=== PATIENT | male | born 1965 | race Caucasian/White ===

== ENCOUNTER 2021-11-16 10:41 | Emergency (ER) | payer OTHER, SELFPAY ==
[2021-11-16 10:50] VITALS: BP 154/86; PULSE 58; RESP 16; TEMP 36.8; O2SAT 97
[2021-11-16 10:52] VITALS: BP 154/86; PULSE 58; RESP 16; TEMP 36.8; O2SAT 97
--- NOTE | 2021-11-16 11:05 | ED.EAR ---
HPI - Ear Problem General Chief complaint: Dental/Oral Stated complaint: Ear Pain Time Seen by Provider: 11/16/21 11:05 Source: patient and RN notes reviewed Mode of arrival: ambulatory Limitations: no limitations History of Present Illness HPI Narrative: 56-year-old male presents to the [facility] with complaints of right ear pain and right upper dental pain. Had a tooth pulled on October 27. States he was placed on amoxicillin but took it over a course of 2 to 2-1/2 weeks and not as prescribed. Related Data Allergies Allergy/AdvReac Type Severity Reaction Status Date / Time bee venom protein (honey bee) Allergy Unknown Swelling Verified 11/16/21 10:50 venom-honey bee Allergy Unknown Swelling Verified 11/16/21 10:50 Review of Systems Review of Systems: All systems reviewed & are unremarkable except as noted in HPI and below Constitutional: Constitutional: Reports no additional constitutional complaints, Denies chills and Denies fever(s) Eyes: Eyes: Reports no additional eye complaints ENT: Reports system reviewed and no additional complaints, except as documented Comments: Right upper dental and ear pain Cardiovascular: Cardiovascular: Reports no additional cardiovascular complaints Respiratory: Respiratory: Reports no additional respiratory complaints Gastrointestinal: Gastrointestinal: Reports no additional gastrointestinal complaints Musculoskeletal: Musculoskeletal: Reports no additional musculoskeletal complaints Integumentary/Breasts: Skin/Breast: Reports system reviewed and no additional complaints, except as docu Neurologic: Reports system reviewed and no additional complaints, except as documented Psychiatric: Psychiatric: Reports no additional psychiatric complaints Allergic/Immunologic: Allergic/Immunologic: Reports no additional allergic/immunologic complaints PMFSH Family History Family History Father Family history of lung cancer, Onset Age: 57 Mother Family history of malignant neoplasm of breast in first degree relative, Onset Age: 47 Family history of lung cancer, Onset Age: 47 Sibling Family history of blood dyscrasia Family history of atrial fibrillation Other Family history of malignant neoplasm of breast No family history of hypertension Social History Social History Smoking status: Former smoker Smoking end date: 11/17/04 Alcohol intake: current Comments At the time of my signature, I reviewed and agree with the nursing past medical, surgical, social, and family history. There is no relevant family history pertinent to the patient complaint. Exam Const: General: healthy appearing, no acute distress and alert Nutritional Appearance: well nourished Orientation/consciousness: patient oriented x3 Limitations: no limitations HENMT: Head: normal to inspection Ears: external ears normal, TM's normal bilaterally and EAC's normal Face and sinus: normal facial exam and sinuses nontender Mouth: Yes Normal oral and palatal mucosa present and Yes moist mucous membranes Teeth image: 1. Tenderness, swelling to the gingival area., Tooth #3 extracted recently Eyes: Pupils: Equal, round and reactive pupils present Neck: Neck: normal visual inspection, no lymphadenopathy and no meningeal signs Chest: Chest palpation & inspection: normal inspection of the chest Resp: Effort & Inspection: normal respiratory effort and no use of accessory muscles Auscultation: clear to auscultation bilaterally, no crackles, no rales, no rhonchi and no wheezes Cardio: Rate: regular rate Rhythm: regular rhythm Back/Spine/Pelvis: Back: no CVA tenderness Skin: General skin exam: normal color Rashes: no rashes Wounds: no wounds Neuro: General: patient oriented x3, moves all extremities, no meningeal signs and no focal motor deficits Speech: normal speech Gait exam (
== END 2021-11-16 11:25 | disposition home or self-care (01) ==
PROVIDERS: Emergency Provider Nurse Practitioner; PCP Family Medicine
DX: K04.7 Periapical abscess without sinus (principal); Z87.891 Personal history of nicotine dependence
CPT/HCPCS: 99213; G0463

== ENCOUNTER → 2022-08-15 16:27 | Outpatient (CLI) | payer OTHER, SELFPAY ==
--- NOTE | ~2022-08-15 | XR_ITS ---
XR lumbar spine 2-3V 08/15/2022 16:46 Indication: Low back pain. Procedure: 3 views lumbar spine Comparison: No prior studies for comparison. Findings: There is mild disc narrowing at L5-S1. Vertebral body heights are maintained. The remainder of the disc spaces are preserved. There is facet hypertrophy at L5-S1. No fracture, subluxation or s pondylolisthesis. There are surgical changes in the left mid abdomen and pelvis. Pedicles intact. Sac ral foramen are symmetric. There is atherosclerosis. Impression: 1: Mild lumbar spondylosis. Reviewed, dictated and finalized at location B. Impression: 1: Mild lumbar spondylosis.
== END ==
PROVIDERS: PCP Physician Assistant; Visit Provider Physician Assistant
DX: M47.896 Other spondylosis, lumbar region (principal)
CPT/HCPCS: 72100

== ENCOUNTER 2022-11-26 10:18 | Outpatient (CLI) | payer OTHER, SELFPAY ==
[2022-11-26 20:22] LABS: Prostate Specific Antigen 0.1 ng/mL (< OR = 4.0)
== END 2022-11-26 10:19 | disposition home or self-care (01) ==
LOC: ANHGOSHLAB 10:20
PROVIDERS: PCP Emergency Medicine; Visit Provider Emergency Medicine
DX: Z85.46 Personal history of malignant neoplasm of prostate (principal); Z12.5 Encounter for screening for malignant neoplasm of prostate
CPT/HCPCS: 36415; 84153

== ENCOUNTER → 2022-11-29 15:15 | Outpatient (CLI) | payer OTHER, SELFPAY ==
--- NOTE | ~2022-11-29 | US_ITS ---
US soft tissue groin LT DATE: 11/29/2022 15:40 INDICATION: Left groin swelling TECHNIQUE: Real-time imaging of the left groin COMPARISON: None FINDINGS: There is peristalsing bowel within the soft tissues of the left inguinal region, consistent with bowel containing left inguinal hernia IMPRESSION: Bowel containing left inguinal hernia Reviewed, dictated and finalized at Location A. Reviewed, dictated and finalized at location A. ATOR SUPERVISOR
== END ==
PROVIDERS: PCP Emergency Medicine; Visit Provider Emergency Medicine
DX: K40.90 Unilateral inguinal hernia, without obstruction or gangrene, not specified as recurrent (principal)
CPT/HCPCS: 76882

== ENCOUNTER 2023-01-06 16:13 | Outpatient (CLI) | payer OTHER, SELFPAY ==
--- NOTE | 2023-01-06 16:25 | ECG_ITS ---
Measurements Intervals [place] Rate: 60 P: 44 NH: 153 QRS: 9 QRSD: 100 T: -14 QT: 437 QTc: 438 Interpretive Statements SINUS RHYTHM NONSPECIFIC T-WAVE ABNORMALITY ABNORMAL ECG NO PREVIOUS ECG AVAILABLE FOR COMPARISON Electronically Signed On 01-07-2023 14:08:41 [employer]ANGER by Tc Lee M.D.
== END 2023-01-06 16:14 | disposition home or self-care (01) ==
LOC: ANHCARD 16:15
PROVIDERS: PCP Emergency Medicine; Visit Provider Surgery
DX: E78.00 Pure hypercholesterolemia, unspecified (principal); Z01.818 Encounter for other preprocedural examination; R94.31 Abnormal electrocardiogram [ECG] [EKG]
CPT/HCPCS: 93005

== ENCOUNTER 2023-01-13 01:56 | Day surgery (SDC) | payer OTHER, SELFPAY ==
[2023-01-01 17:26] VITALS: BMI 31.4
--- NOTE | 2023-01-01 17:58 | PC.NURSE ---
Addendum entered by Jennifer Armstrong RN 01/01/23 18:10: Patient told to specifically get Hibiclens Original Note: Report to the Outpatient Waiting Room, entrance under the [facility] located off [facility], at 0600 on 01-13-23. Planned Procedure Time: 0730. Time changes happen often and if your time is changed the preop area will call you the afternoon before. - You and your visitor will be asked to self-screen and do not enter if you have any COVID symptoms. - Only one visitor is requested with a max of two and NO children visitors are allowed at this time. - The patient visitor may be requested to leave or wait in car when not with patient due to distancing restrictions. - A mask is optional within the hospital at this time. Patients may have clear liquids (water, carbonated beverages, clear teas, apple juice) until 3 hours prior to surgery with a maximum of 20 ounces. 0430 - No food from midnight until time of surgery - Infants may have breast milk until 4 hours before surgery, infant formula 6 hours prior to surgery. - Children will be allowed to drink immediately following surgery. If applicable, please bring a bottle or sippy cup to assist with drinking. Juice, water, soda, and popsicles are readily available. For infants on formula, please bring formula the day of surgery. Pacifiers are allowed. Take the following medications with a SIP of water the morning of surgery: mesalamine (Lialda) DO NOT STOP ANY OF YOUR OTHER PRESCRIPTION MEDICATIONS PRIOR TO SURGERY ?EXCEPT THE FOLLOWING Medications to discontinue per physician: vitamins and supplements Date to take last dose: 01-10-23 Please no make-up, nail burundian, hairspray, perfume, deodorant, or body powder the day of surgery. No jewelry (including any body piercings) or valuables the day of surgery, leave them at home. Please take a shower or bath the night before, or the morning of, surgery with an antibacterial soap. Wear comfortable, loose fitting clothing. Children are encouraged to wear pajamas. - Jewelry must be removed prior to entering the operating room. Rings and piercings that are not removed may be cut off. - The hospital will not accept responsibility for valuables. - Please leave all valuables, including medications, at home the day of surgery. If you are going home after surgery, a licensed driver's education instructor must drive you home. - NO public transportation without another adult if you receive anesthesia. - We recommend that an adult stay with you for 24 hours following discharge. - We also recommend that you do not drive, make important decision, drink alcoholic beverages, or take any drugs that were not prescribed by your health care provider for at least 24 hours after your discharge time. For Pediatric surgeries, we recommend two adults accompany the child home. Follow any additional instructions given to you from your surgeon. If you or anyone in your household have experienced Covid symptoms in the past week, please notify your surgeon or the nurse liaison at the phone number below for possible testing. Telephone instructions given to Billy Mendosa and asked if any additional questions and then verbalized understanding. Patient advised to call surgeon office or pre surgery nurse liaison [phone] if any additional questions.
[2023-01-13] VITALS (8 sets, daily range): BP systolic 120–129; BP diastolic 82–95; PULSE 56–79; RESP 10–16; TEMP 36.3–36.6; O2SAT 95–100
--- NOTE | 2023-01-13 06:50 | WPDHPUPDATE1 ---
History and Physical Update Update Date/Time: 01/13/23 06:50 History and Physical has been reviewed, including an updated exam of the patient. There are NO changes in the patient's condition. Risks, benefits, and alternatives have been discussed and questions answered. Patient agrees to proceed with procedure.
--- NOTE | 2023-01-13 06:51 | PM.IMHP ---
H&P: HPI History of Present Illness Date/Time: 01/13/23 06:51 Chief Complaint: Left groin pain Narrative: Pt presents with complaints of left groin pain with lifting and long periods of standing. Occasionally can see a left groin bulge. Groin U/S done showing LIH and exam in office consistent with LIH. He denies seeing any bulge in right groin and no right groin pain. No prior hx of inguinal hernia repair but he did have a prostatectomy in 2018. Review of Systems Review of Systems: The remainder of the review of systems to include constitutional, HEENT, cardiovascular, respiratory, GI, , integumentary, musculoskeletal, endocrine, immunologic, hematologic, psychiatric, and neurologic are all negative except for which is mentioned above in the HPI. [facility] Past Medical History Medical History Dyslipidemia History of prostate cancer SONIA (obstructive sleep apnea) Surgical History Surgical History Hx of knee surgery Hx of prostatectomy 2018 Family History Family History Father Family history of lung cancer, Onset Age: 57 Mother Family history of malignant neoplasm of breast in first degree relative, Onset Age: 47 Family history of lung cancer, Onset Age: 47 Sibling Family history of blood dyscrasia Family history of atrial fibrillation Other Family history of malignant neoplasm of breast No family history of hypertension Social History Social History Social History: Caffeine-36 oz diet soda Smoking status: Never smoker Tobacco type: smokeless tobacco Smoking end date: 11/17/04 Additional smoking assessment comments: quit 15 years ago Alcohol intake: current Alcohol use details: socially Substance use: never Substance use type: does not use Lack of Transportation: No Lack of Food: Never True Current Housing: I Have Housing Concerned About Future Housing: No Difficulty Paying Gas/Electric Bills: No Difficulty Paying for Meds: No Currently Unemployed: No Education: Master's Degree or Higher Difficulty w/ Childcare or Family Care: No Living arrangements: with family Spiritual care concerns: No Meds Home Medications and Allergies Home Medications Medication Instructions Recorded Confirmed Type mesalamine 1.2 gram tablet,delayed 2.4 g PO BID 08/15/22 01/01/23 History release (Lialda) pantoprazole 40 mg tablet,delayed 40 mg PO QAM #30 tabs 08/15/22 01/01/23 Rx release psyllium husk 0.4 gram capsule 0.4 g PO DAILY 08/15/22 01/01/23 History (Daily Fiber) acyclovir 800 mg tablet 800 mg PO TID PRN cold sores 01/01/23 01/01/23 History atorvastatin 20 mg tablet 20 mg PO HS 01/01/23 01/01/23 History cyclobenzaprine 10 mg tablet 10 mg PO TID PRN Muscle Spasm 01/01/23 01/01/23 History Allergies Allergy/AdvReac Type Severity Reaction Status Date / Time bee venom protein (honey bee) Allergy Unknown Swelling Verified 12/11/22 10:56 venom-honey bee Allergy Unknown Swelling Verified 12/11/22 10:56 Exam Const: General: comfortable and no acute distress HENMT: Face/Nose/Sinus: Normal nares present Mouth: Yes moist mucous membranes Eyes: Sclera: sclerae normal Pupils: Equal, round and reactive pupils present Neck: Neck: supple and no JVD Thyroid: thyroid normal Lymphatic: lymphadenopathy Resp: Effort & Inspection: normal respiratory effort Auscultation: clear to auscultation bilaterally Cardio: Rate: regular rate Rhythm: regular rhythm GI: GI Palp: Yes Soft to palpation Auscultation: normal bowel sounds : Other: LIH palpable with cough. Slight visible bulge left groin. LIH is reducible, no RIH. No groin rashes. Skin: General skin exam: normal color and no rashes or lesions noted Neuro: General:
[2023-01-13] MEDS: KETOROLAC 15 MG/ML VIAL (*BKC) IV PUSH ×2 (07:10→08:54)
[2023-01-13] MEDS: LACTATED RINGERS 1,000 ML 30 ML IV CONT ×2 (07:10→09:25)
[2023-01-13] MEDS: ACETAMINOPHEN 500 MG TABLET 1000 MG PO (07:10)
--- NOTE | 2023-01-13 07:19 | WPDANESEPPF ---
Anes - Initial Pre Proc Eval Procedure: Operation Date: 01/13/23 07:30 Proposed Procedures p Open Left Inguinal Hernia Repair with Mesh - Erick Celis MD Date/Time: 01/13/23 07:19 Surgeon: Erick Celis MD Pre Op Diagnosis: reduceable left inguinal hernia Patient Data Age: 58 Gender: M Height: 1.8 m Weight: 102.06 kg Allergies Allergy/AdvReac Type Severity Reaction Status Date / Time bee venom protein (honey bee) Allergy Unknown Swelling Verified 12/11/22 10:56 venom-honey bee Allergy Unknown Swelling Verified 12/11/22 10:56 Home Medications Medication Instructions Recorded Confirmed Type mesalamine 1.2 gram tablet,delayed 2.4 g PO BID 08/15/22 01/01/23 History release (Lialda) pantoprazole 40 mg tablet,delayed 40 mg PO QAM #30 tabs 08/15/22 01/01/23 Rx release psyllium husk 0.4 gram capsule 0.4 g PO DAILY 08/15/22 01/01/23 History (Daily Fiber) acyclovir 800 mg tablet 800 mg PO TID PRN cold sores 01/01/23 01/01/23 History atorvastatin 20 mg tablet 20 mg PO HS 01/01/23 01/01/23 History cyclobenzaprine 10 mg tablet 10 mg PO TID PRN Muscle Spasm 01/01/23 01/01/23 History Patient hx anesthesia problems: none Family hx anesthesia problems: none Results Review: All pre-operative results and documents have been reviewed as part of the pre-operative evaluation. [facility] Past Medical History Medical History Dyslipidemia History of prostate cancer SONIA (obstructive sleep apnea) Surgical History Surgical History Hx of knee surgery Hx of prostatectomy 2018 Family History Family History Father Family history of lung cancer, Onset Age: 57 Mother Family history of malignant neoplasm of breast in first degree relative, Onset Age: 47 Family history of lung cancer, Onset Age: 47 Sibling Family history of blood dyscrasia Family history of atrial fibrillation Other Family history of malignant neoplasm of breast No family history of hypertension Social History Social History Social History: Caffeine-36 oz diet soda Smoking status: Never smoker Tobacco type: smokeless tobacco Smoking end date: 11/17/04 Additional smoking assessment comments: quit 15 years ago Alcohol intake: current Alcohol use details: socially Substance use: never Substance use type: does not use Lack of Transportation: No Lack of Food: Never True Current Housing: I Have Housing Concerned About Future Housing: No Difficulty Paying Gas/Electric Bills: No Difficulty Paying for Meds: No Currently Unemployed: No Education: Master's Degree or Higher Difficulty w/ Childcare or Family Care: No Living arrangements: with family Spiritual care concerns: No Anes - Eval Final PreProcedure Day of Procedure 01/13/23 07:19 Patient weight: obese Heart: regular rate and rhythm Lungs: clear to auscultation Airway: Mallampati scale class II Neurological: alert and oriented Last oral intake: >/= 8 hours ASA classification: III Emergent: no Anesthetic plan: proceed Anesthesia type and monitoring: general LMA and standard monitoring Results Review: All pre-operative results and documents have been reviewed as part of the pre-operative evaluation. Informed Consent: The patient's anesthetic plan and its attendant risks and benefits were discussed with the patient/family/POA. Questions were solicited and answers provided to the satisfaction of the patient/family/POA.
[2023-01-13] MEDS: ceFAZolin 2 GM/D5W 50 ML 2 GM/50 ML BAG IVPB (07:23)
[2023-01-13] MEDS: BUPivacaine HCL 0.5% PF 30 ML VIAL INFILTRATE (07:56)
--- NOTE | 2023-01-13 09:27 | W.PM.PROC2 ---
Procedure Note - Detailed Date of Procedure 01/13/23 Pre-op Diagnosis Reduceable left inguinal hernia Post-op Diagnosis Same (Indirect.) Procedure Performed Open reducible indirect left inguinal hernia repair with [facility] mesh. Surgeon Erick Celis MD Filling Hand Naomi Dasilva NP Anesthesia General Indications Patient is a 58-year-old gentleman presented with left groin pain and a clinical examination had a moderate-sized reducible left inguinal hernia. He presents now for elective repair the open approach with mesh reinforcement. Findings Moderate size indirect left inguinal hernia, reducible. Description of Procedure After informed consent was obtained the patient was brought to the operating room was placed in supine position and then general LMA anesthesia was administered. The lower abdomen and bilateral groin regions were then prepped and draped in usual sterile fashion. A time-out was then performed correctly identifying the patient as well as the procedure to be performed and verifying the site marking. The patient was given Ancef for perioperative IV antibiotics. I 1st started by making a oblique incision the left groin region about 2 finger breaths above the left pubic tubercle. Dissection was carried down through skin the subcutaneous tissues and Italo's fascia with electrocautery. The external oblique aponeurosis was encountered and the subcutaneous tissue was dissected off of the fascia. The external ring was identified and I opened the external oblique aponeurosis along the direction of its fibers with electrocautery out through the external ring the edges of the external oblique aponeurosis were then reflected back and dissected off of the internal oblique and cremasteric muscle fibers with electrocautery. I then isolated the cord structures at the pubic tubercle blunt finger dissection and placed a [place] drain around the cord structures. I then further mobilized the cord by dividing showed cremasteric muscle fibers. I examine the floor that was down was intact without evidence of a direct defect. I then explored the spermatic cord splitting the cremasteric muscle fibers identified a indirect inguinal hernia sac. I dissected this hernia sac away from the as difference and testicular vessels which were preserved without injury. A large cord lipoma was also found and this was dissected free of the other cord structures electrocautery up to level the internal ring. At that level the cord lipoma was then resected the proximal portion of it internal ring was ligated with a 3-0 Vicryl suture. The tissue was discarded. I then proceeded to place retractors within the dilated internal ring and reduced the hernia sac back into the preperitoneal space through the dilated internal ring. I then developed the preperitoneal space deep to the inferior epigastric vessels with blunt finger and sponge dissection. I then chose a extended oval piece of ultra Pro hernia system mesh for the repair. The underlay portion of mesh was placed to the dilated internal ring into the preperitoneal space deep to the inferior epigastric vessels. It was then spread out to cover the whole myopectineal orifice. The cylindrical connecting portion of the mesh came out through the dilated internal ring and then the overlay portion of the mesh was then laid over the floor of the inguinal canal. The overlay mesh was secured at the tissues of the pubic tubercle a 2-0 Vicryl suture. A slit was then cut in the onlay patch to accommodate cord structures and then the edges of the patch were reapproximated around the cord utilizing interrupted 2-0 Vicryl sutures. Tail of the patch was intact underneath the external oblique aponeurosis proximally. I then further secured the the patch medially to fibers of the internal oblique muscle with interrupted 2-0 Vicryl sutures. Laterally the overlay was secured to shelving edge of the external oblique aponeurosis utilizing interrupted 2-0 V
[2023-01-13] MEDS: fentaNYL CITRATE INJ (*CRX) 100 MCG/2 ML VIAL 25 MCG IV PUSH ×3 (09:39→10:08)
[2023-01-13] MEDS: oxyCODONE HCL (*CRX) 5 MG TAB IR PO (10:37)
== END 2023-01-13 11:30 | disposition home or self-care (01) ==
PROVIDERS: PCP Emergency Medicine; Visit Provider Surgery
PROC: (CPT 49505; principal; 2023-01-13 07:30)
DX: K40.90 Unilateral inguinal hernia, without obstruction or gangrene, not specified as recurrent (principal); E78.5 Hyperlipidemia, unspecified; G47.33 Obstructive sleep apnea (adult) (pediatric); Z85.46 Personal history of malignant neoplasm of prostate; Z87.891 Personal history of nicotine dependence; E66.9 Obesity, unspecified; Z68.33 Body mass index [BMI] 33.0-33.9, adult
CPT/HCPCS: 49505; 93005; A9270; C1781; C9290; J0690; J1100; J1885; J2250; J2405; J2704; J3010; J7120

== ENCOUNTER → 2023-05-26 15:37 | Outpatient (CLI) | payer OTHER, SELFPAY ==
--- NOTE | ~2023-05-26 | MR_ITS ---
EXAMINATION: MR lumbar spine wo con DATE: 05/26/2023 16:07 INDICATION: Dorsalgia, unspecified. TECHNIQUE: Magnetic resonance imaging (MRI) of the lumbar spine was performed without intravenous con trast. Sequences included sagittal T2-weighted FSE, sagittal T2-weighted FS FSE, sagittal T1-weighted FSE, and axial T2-weighted FSE. COMPARISON: Lumbar spine radiographs 08/15/2022 FINDINGS: Bone alignment is normal. Vertebral body heights are normal. There is mildly decreased disc height at L4-L5 and moderately decreased disc height at L5-S1 with endplate remodeling. The distal s volodymyr cord signal intensity is normal. The conus medullaris is at T12. The following disc levels are specifically discussed: L1-L2: The disc does not extend beyond the endplate margin. There is moderate right and mild left fac et joint osteoarthritis. There is no neural foraminal stenosis. There is no central canal stenosis. L2-L3: The disc is bulging and has an annular fissure. There is moderate right and severe left facet joint osteoarthritis. There is mild left neural foraminal stenosis. There is no central canal stenosi s. L3-L4: The disc is bulging. There is severe right and mild left facet joint osteoarthritis. There is mild bilateral neural foraminal stenosis. There is mild central canal stenosis. L4-L5: The disc does not extend beyond the endplate margin. There is mild bilateral facet joint osteo arthritis. There is no neural foraminal stenosis. There is no central canal stenosis. L5-S1: The disc is bulging. There is mild bilateral facet joint osteoarthritis. There is mild left ne ural foraminal stenosis. There is mild central canal stenosis. IMPRESSION: 1. Moderate lower lumbar spondylosis. Reviewed, dictated and finalized at location E.
== END ==
PROVIDERS: PCP Emergency Medicine; Visit Provider Emergency Medicine
DX: M47.896 Other spondylosis, lumbar region (principal)
CPT/HCPCS: 72148

== ENCOUNTER 2023-08-08 01:41 | Day surgery (SDC) | payer OTHER, SELFPAY ==
[2023-07-30 14:14] VITALS: BMI 33.7
[2023-08-08 12:13] VITALS: BP 122/91; PULSE 65; RESP 18; TEMP 36.5; O2SAT 98; BMI 34.0
[2023-08-08] MEDS: LACTATED RINGERS 1,000 ML 150 ML IV CONT (12:48)
--- NOTE | 2023-08-08 13:05 | PM.HPGS ---
History of Present Illness History of Present Illness Consent: Risks, benefits, and alternatives have been discussed and questions answered. Patient agrees to proceed with procedure. Chief complaint: dysphagia Narrative: Billy Mendosa is a 58 year old male Presents for EGD. Patient has food that catches in mid substernal portion the chest. This happens very consistently with meat such as chicken. Patient does have a history of acid reflux continues to have heartburn intermittently. Previously was on PPI therapy. He did stop this for a period of time. Patient denies any weight loss. He has had no bleeding. Additionally patient has a history of ulcerative colitis currently felt to be stable. Currently takes Lialda 4.8g p.o. daily. Patient has a history of last surveillance exam in 2019. He will need follow-up surveillance intermittently. Currently anticipated to be performed next year. Review of Systems Review of Systems: Review of systems noncontributory. [facility] Past Medical History Medical History Dyslipidemia History of prostate cancer SONIA (obstructive sleep apnea) Surgical History Surgical History Hx of knee surgery Hx of left inguinal hernia repair Open reducible indirect left inguinal hernia repair with [facility]HS mesh 01/13/23. Hx of prostatectomy 2018 Family History Family History Father Family history of lung cancer, Onset Age: 57 Mother Family history of malignant neoplasm of breast in first degree relative, Onset Age: 47 Family history of lung cancer, Onset Age: 47 Sibling Family history of blood dyscrasia Family history of atrial fibrillation Other Family history of malignant neoplasm of breast No family history of hypertension Social History Social History Social History: Caffeine-36 oz diet soda Smoking status: Never smoker Tobacco type: smokeless tobacco Smoking end date: 11/17/04 Additional smoking assessment comments: quit 15 years ago Alcohol intake: current Drinks per week: 10 Alcohol use details: socially Substance use: never Substance use type: does not use Lack of Transportation: No Lack of Food: Never True Current Housing: I Have Housing Concerned About Future Housing: No Difficulty Paying Gas/Electric Bills: No Difficulty Paying for Meds: No Currently Unemployed: No Education: Master's Degree or Higher Difficulty w/ Childcare or Family Care: No Living arrangements: with family Spiritual care concerns: No Meds Home Medications and Allergies Home Medications Medication Instructions Recorded Confirmed Type mesalamine 1.2 gram tablet,delayed 2.4 g PO BID 08/15/22 07/30/23 History release (Lialda) psyllium husk 0.4 gram capsule 0.4 g PO DAILY 08/15/22 07/30/23 History (Daily Fiber) acyclovir 800 mg tablet 800 mg PO TID PRN cold sores 01/01/23 07/30/23 History cyclobenzaprine 10 mg tablet 10 mg PO TID PRN Muscle Spasm 01/01/23 07/30/23 History atorvastatin 20 mg tablet 20 mg PO HS #90 tabs 06/20/23 07/30/23 Rx Allergies Allergy/AdvReac Type Severity Reaction Status Date / Time bee venom protein (honey bee) Allergy Unknown Swelling Verified 07/30/23 14:22 Vital Signs Vital Signs - 24 hr 08/08/23 12:13 Temperature 97.7 F Pulse Rate 65 Respiratory Rate 18 Blood Pressure 122/91 H Pulse Oximetry 98 Oxygen Delivery Room Air Exam Narrative: Physical exam reveals patient to be alert. Vital signs stable. HEENT exam is unremarkable. Patient is anicteric. Lungs are clear to auscultation and percussion. Heart is without murmur or extra sounds. Abdomen bowel sounds are present soft nontender with no organomegaly. Digital external rectal exam no
--- NOTE | 2023-08-08 13:07 | WPDANESEPPF ---
Anes - Initial Pre Proc Eval Procedure: Operation Date: 08/08/23 13:30 Proposed Procedures p Esophagogastroduodenoscopy - Dejon Varner MD Date/Time: 08/08/23 13:07 Surgeon: Dejon Varner MD Pre Op Diagnosis: dysphagia unspecified Patient Data Age: 58 Gender: M Height: 1.78 m Weight: 107.7 kg Last Vital Signs Temp 97.7 F 08/08/23 12:13 Pulse 65 08/08/23 12:13 Resp 18 08/08/23 12:13 BP 122/91 H 08/08/23 12:13 Pulse Ox 98 08/08/23 12:13 O2 Del Method Room Air 08/08/23 12:13 Allergies Allergy/AdvReac Type Severity Reaction Status Date / Time bee venom protein (honey bee) Allergy Unknown Swelling Verified 07/30/23 14:22 Home Medications Medication Instructions Recorded Confirmed Type mesalamine 1.2 gram tablet,delayed 2.4 g PO BID 08/15/22 07/30/23 History release (Lialda) psyllium husk 0.4 gram capsule 0.4 g PO DAILY 08/15/22 07/30/23 History (Daily Fiber) acyclovir 800 mg tablet 800 mg PO TID PRN cold sores 01/01/23 07/30/23 History cyclobenzaprine 10 mg tablet 10 mg PO TID PRN Muscle Spasm 01/01/23 07/30/23 History atorvastatin 20 mg tablet 20 mg PO HS #90 tabs 06/20/23 07/30/23 Rx Patient hx anesthesia problems: none Family hx anesthesia problems: none Results Review: All pre-operative results and documents have been reviewed as part of the pre-operative evaluation. [facility] Past Medical History Medical History Dyslipidemia History of prostate cancer SONIA (obstructive sleep apnea) Surgical History Surgical History Hx of knee surgery Hx of left inguinal hernia repair Open reducible indirect left inguinal hernia repair with UHS mesh 01/13/23. Hx of prostatectomy 2018 Family History Family History Father Family history of lung cancer, Onset Age: 57 Mother Family history of malignant neoplasm of breast in first degree relative, Onset Age: 47 Family history of lung cancer, Onset Age: 47 Sibling Family history of blood dyscrasia Family history of atrial fibrillation Other Family history of malignant neoplasm of breast No family history of hypertension Social History Social History Social History: Caffeine-36 oz diet soda Smoking status: Never smoker Tobacco type: smokeless tobacco Smoking end date: 11/17/04 Additional smoking assessment comments: quit 15 years ago Alcohol intake: current Drinks per week: 10 Alcohol use details: socially Substance use: never Substance use type: does not use Lack of Transportation: No Lack of Food: Never True Current Housing: I Have Housing Concerned About Future Housing: No Difficulty Paying Gas/Electric Bills: No Difficulty Paying for Meds: No Currently Unemployed: No Education: Master's Degree or Higher Difficulty w/ Childcare or Family Care: No Living arrangements: with family Spiritual care concerns: No Anes - Eval Final PreProcedure Day of Procedure 08/08/23 13:07 Patient weight: normal Heart: regular rate and rhythm Lungs: clear to auscultation Airway: Mallampati scale class II Neurological: alert and oriented Last oral intake: >/= 8 hours ASA classification: III Emergent: no Anesthetic plan: proceed Anesthesia type and monitoring: general GIVS and standard monitoring Results Review: All pre-operative results and documents have been reviewed as part of the pre-operative evaluation. Informed Consent: The patient's anesthetic plan and its attendant risks and benefits were discussed with the patient/family/POA. Questions were solicited and answers provided to the satisfaction of the patient/family/POA.
[2023-08-08 13:24] VITALS: BP 124/86; PULSE 67; RESP 18; O2SAT 97
[2023-08-08 13:34] VITALS: BP 138/93; PULSE 66; RESP 21; O2SAT 98
[2023-08-08 13:44] VITALS: BP 126/82; PULSE 64; RESP 25; O2SAT 96
== END 2023-08-08 13:59 | disposition home or self-care (01) ==
PROVIDERS: PCP Emergency Medicine; Visit Provider Internal Medicine Gastroenterology
PROC: 0DJ08ZZ Inspection of Upper Intestinal Tract, Via Natural or Artificial Opening Endoscopic (ICD-10-PCS; CPT 43235; principal; 2023-08-08 13:30)
DX: K22.2 Esophageal obstruction (principal); K21.00 Gastro-esophageal reflux disease with esophagitis, without bleeding; E78.5 Hyperlipidemia, unspecified; G47.33 Obstructive sleep apnea (adult) (pediatric); K51.90 Ulcerative colitis, unspecified, without complications; Z85.46 Personal history of malignant neoplasm of prostate; Z87.891 Personal history of nicotine dependence
CPT/HCPCS: 43239; 43450; 87081; J2704; J7120

== ENCOUNTER 2023-11-24 13:08 | Emergency (ER) | payer OTHER, SELFPAY ==
--- NOTE | 2023-11-24 13:16 | ED.BACK ---
HPI - Back Pain/Injury General Chief Complaint: Back Pain/Injury Stated Complaint: Back pain Time Seen by Provider: 11/24/23 13:21 Source: patient, RN notes reviewed and old records reviewed Mode of arrival: ambulatory Limitations: no limitations History of Present Illness HPI Narrative: 58-year-old male presents to the [facility] with complaints of right lower back pain for 2 days. States he took some ibuprofen last night. Patient reports a history of low back pain States he has had similar pain in the past and usually prednisone helps Patient reports that he was walking slipped on some ice, did not fall but caught himself has had a inflammation feeling in his right lower back Denies midline tenderness. No loss retention of bowel or bladder. Walks with a normal gait. No numbness or tingling in extremities Onset (ago): day(s) (2) Related Data Home Medications Medication Instructions Recorded Confirmed mesalamine 1.2 gram tablet,delayed 2.4 g PO BID 08/15/22 11/24/23 release (Lialda) psyllium husk 0.4 gram capsule 0.4 g PO DAILY 08/15/22 11/24/23 (Daily Fiber) acyclovir 800 mg tablet 800 mg PO TID PRN cold sores 01/01/23 11/24/23 cyclobenzaprine 10 mg tablet 10 mg PO TID PRN Muscle Spasm 01/01/23 09/05/23 Allergies Allergy/AdvReac Type Severity Reaction Status Date / Time bee venom protein (honey bee) Allergy Unknown Swelling Verified 11/24/23 13:26 Review of Systems Review of Systems: All systems reviewed & are unremarkable except as noted in HPI and below Constitutional: Constitutional: Reports no additional constitutional complaints Eyes: Eyes: Reports no additional eye complaints ENT: Reports system reviewed and no additional complaints, except as documented Cardiovascular: Cardiovascular: Reports no additional cardiovascular complaints, Denies chest pain and Denies dyspnea Respiratory: Respiratory: Reports no additional respiratory complaints, Denies chest congestion, Denies cough and Denies dyspnea Gastrointestinal: Gastrointestinal: Reports no additional gastrointestinal complaints, Denies abdominal pain, Denies nausea and Denies vomiting Musculoskeletal: Musculoskeletal: Reports as per HPI and Reports back pain (Right lower) Integumentary/Breasts: Skin/Breast: Reports system reviewed and no additional complaints, except as docu Neurologic: Reports system reviewed and no additional complaints, except as documented Psychiatric: Psychiatric: Reports no additional psychiatric complaints Allergic/Immunologic: Allergic/Immunologic: Reports no additional allergic/immunologic complaints [facility] Past Medical History Medical History Dyslipidemia History of prostate cancer SONIA (obstructive sleep apnea) Surgical History Surgical History Hx of knee surgery Hx of left inguinal hernia repair Open reducible indirect left inguinal hernia repair with [facility]HS mesh 01/13/23. Hx of prostatectomy 2018 Family History Family History Father Family history of lung cancer, Onset Age: 57 Mother Family history of malignant neoplasm of breast in first degree relative, Onset Age: 47 Family history of lung cancer, Onset Age: 47 Sibling Family history of blood dyscrasia Family history of atrial fibrillation Other Family history of malignant neoplasm of breast No family history of hypertension Social History Social History Social History: Caffeine-36 oz diet soda Smoking status: Never smoker Tobacco type: smokeless tobacco Smoking end date: 11/17/04 Additional smoking assessment comments: quit 15 years ago Alcohol intake: current Drinks per week: 10 Alcohol use details: socially Substance use: never Substance use type: does not use Lack of Transportati
[2023-11-24 13:21] VITALS: BP 157/99; PULSE 84; RESP 18; TEMP 36.6; O2SAT 99
== END 2023-11-24 13:36 | disposition home or self-care (01) ==
PROVIDERS: Emergency Provider Nurse Practitioner; PCP Emergency Medicine
DX: S39.012A Strain of muscle, fascia and tendon of lower back, initial encounter (principal); W18.40XA Slipping, tripping and stumbling without falling, unspecified, initial encounter; E78.5 Hyperlipidemia, unspecified; Z85.46 Personal history of malignant neoplasm of prostate
CPT/HCPCS: 99213; G0463

== ENCOUNTER 2024-09-10 08:27 | Outpatient (CLI) | payer OTHER, SELFPAY ==
[2024-09-10 16:51] LABS: Basophils Percent Auto 0.5 % (0.2-1.2); Eosinophils Absolute Auto 0.2 K/mm3 (0-0.3); Eosinophils Percent Auto 3.4 % (0-4.4); Hematocrit 44.9 % (42.0-52.0); Immature Granulocyte Absolute 0.02 K/mm3 (0.00-0.031); Immature Granulocyte Percent A 0.3 % (0-0.5); Lymphocytes Absolute Auto 1.48 K/mm3 (0.9-3.2); Lymphocytes Percent Auto 22.6 % (18.3-44.2); Mean Corpuscular HGB Conc 33.4 g/dl (32-36); Mean Corpuscular Hemoglobin 30.5 pg (26-34); Mean Corpuscular Volume 91.4 fl (80-100); Mean Platelet Volume 10.9 fl (7.4-10.4); Monocytes Absolute Auto 0.6 K/mm3 (0.1-0.6); Monocytes Percent Auto 9.8 % (2.6-8.5); Neutrophils Absolute Auto 4.2 K/mm3 (1.3-6.7); Neutrophils Percent Auto 63.4 % (45.5-73.1); Platelet Count Result 206 k/mm3 (150-375); Red Blood Count 4.91 M/mm3 (4.6-6.20); Red Cell Distribution Width 12.8 % (11.5-14.5); White Blood Count 6.5 K/mm3 (4.5-10.0)
[2024-09-10 17:13] LABS: Alanine Aminotransferase 38 U/L (6-50); Albumin Level 4.6 g/dL (3.5-5.1); Alkaline Phosphatase 73 U/L (38-126); Anion Gap 9 mmol/L (4-12); Aspartate Amino Transferase 40 U/L (17-59); Bilirubin,Total 0.8 mg/dL (0.2-1.3); Blood Urea Nitrogen 26 mg/dL (9-20); Calcium 9.2 mg/dL (8.4-10.2); Carbon Dioxide 30 mmol/L (22-30); Chloride 102 mmol/L (98-107); Cholesterol 197 mg/dL (0-200); Estimated Glomerular Filt Rate > 60; Glucose 80 mg/dL (65-110); HDL Direct 54 mg/dL; Potassium 4.2 mmol/L (3.4-5.0); Sodium 141 mmol/L (137-145); Triglycerides 114 mg/dL (<150)
[2024-09-10 17:24] LABS: LDL Cholesterol Direct 108 mg/dL
[2024-09-10 18:10] LABS: Prostate Specific Antigen 0.1 ng/mL (< OR = 4.0)
[2024-09-10 18:14] LABS: Hemoglobin A1C 5.7 % (<5.7)
== END 2024-09-10 08:28 | disposition home or self-care (01) ==
LOC: ANHGOSHLAB 08:29
PROVIDERS: Visit Provider Nurse Practitioner
DX: R73.03 Prediabetes (principal); K21.9 Gastro-esophageal reflux disease without esophagitis; E78.5 Hyperlipidemia, unspecified; Z85.46 Personal history of malignant neoplasm of prostate
CPT/HCPCS: 36415; 80053; 80061; 83036; 84153; 85025

== ENCOUNTER 2024-10-07 15:32 | Emergency (ER) | payer OTHER, SELFPAY ==
[2024-10-07 15:52] VITALS: BP 132/91; PULSE 78; RESP 16; TEMP 37; O2SAT 98
--- NOTE | 2024-10-07 16:04 | ED.URI ---
HPI - URI/Sore Throat General Chief Complaint: Upper Respiratory Infection Stated Complaint: sorethroat Time Seen by Provider: 10/07/24 16:05 Source: patient, RN notes reviewed and old records reviewed Mode of arrival: ambulatory Limitations: no limitations History of Present Illness HPI Narrative: 59 year old male presents to express care with complaints of sore throat and hoarseness since yesterday with some dry cough has had some chills but no fevers Patient reports that he has been exposed to strep recently. Patient reports that he has taken some Tylenol for his symptoms. 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 MD elicited complaint: cough and sore throat Onset (ago): day(s) (day 2 of symptoms.) Pain scale (0-10): 7 Able to tolerate fluids by mouth: Yes Exacerbating factors: swallowing Treatments prior to arrival: acetaminophen Related Data Allergies Allergy/AdvReac Type Severity Reaction Status Date / Time bee venom protein (honey bee) Allergy Unknown Swelling Verified 10/07/24 16:05 Review of Systems Review of Systems: CONSTITUTIONAL: Denies malaise,positive for chills, sweats, or fever. EYES: Denies visual changes, redness, or discharge. ENT: Reports rhinorrhea, congestion, sinus pain,no otalgia and positive for sore throat and hoarseness CARDIOVASCULAR: Denies chest pain, palpitations, or edema. RESPIRATORY: Reports cough.? Denies dyspnea. GASTROINTESTINAL: Denies abdominal pain, nausea, vomiting, diarrhea SKIN: Denies rash or itching. MUSCULOSKELETAL: Denies myalgia. NEUROLOGIC: Denies headache. All systems reviewed & are unremarkable except as noted in HPI and below PMFSH Past Medical History Medical History (Updated 10/09/24 @ 11:17 by Joana Collins NP) Dyslipidemia History of prostate cancer SONIA (obstructive sleep apnea) Surgical History Surgical History H/O endoscopy Hx of knee surgery Hx of left inguinal hernia repair Open reducible indirect left inguinal hernia repair with UHS mesh 01/13/23. Hx of prostatectomy 2018 Knee joint replacement by other means Family History Family History Father Family history of lung cancer, Onset Age: 57 Mother Family history of malignant neoplasm of breast in first degree relative, Onset Age: 47 Family history of lung cancer, Onset Age: 47 Sibling Family history of blood dyscrasia Family history of atrial fibrillation Other Family history of malignant neoplasm of breast No family history of hypertension Social History Social History Social History: Caffeine-36 oz diet soda Smoking status: Never smoker Tobacco type: smokeless tobacco Smoking end date: 11/17/04 Additional smoking assessment comments: quit 15 years ago Alcohol intake: current Drinks per week: 10 Alcohol use details: socially Substance use: never Substance use type: does not use Lack of Transportation: No Lack of Food: Never True Current Housing: I Have Housing Concerned About Future Housing: No Difficulty Paying Gas/Electric Bills: No Difficulty Paying for Meds: No Currently Unemployed: No Education: Master's Degree or Higher Difficulty w/ Childcare or Family Care: No Living arrangements: with family Spiritual care concerns: No Comments At time of signature, agree with nursing past medical, surgical, social and family history. There is no relevant family history pertinent to the presenting complaint Exam Narrative: GENERAL: Well-appearing, well-nourished, and in no acute distress. HEAD: Normocephalic EYES: PERRLA, conjunctivae clear ENT: Nares clear, turbinates edematous and erythematous, clear discharge. Mucous membranes moist. TM pearly mobley with dull light reflex bilaterally; no tragal tenderness. Oropharynx erythematous without lesions. Tonsils red enlarged and without exudate, no drooling, positive hoarseness, no trismus, uvula midline.post nasal drainage NECK: Supple. lymphadenopathy CHEST: Clear to auscultation, breath sounds equal. No wheezing, rhonchi, rales, or stridor. No respiratory distress, speaks in full sentences.cough,SAO2 98% on room air HEART: Regular rate and rhythm. No murmur heard. SKIN: Warm, dry, no rash. NEURO: Alert and oriented x3. PSYCH: Normal mood and affect Course Course Emergency Course: Patient is aware of diagnosis, understands and agrees to treatment plan.? Anticipatory guidance given.? Patient agrees to follow-up as directed and is aware of reasons to seek care at the emergency department. Portions of this record may have been created with voice recognition software Level of Care: Express Care Visit Vital Signs Vital signs: Vital Signs Temperature 37.0 C 10/07/24 15:52 Pulse Rate 78 10/07/24 15:52 Respiratory Rate 16 10/07/24 15:52 Blood Pressure 132/91 H 10/07/24 15:52 Pulse Oximetry 98 10/07/24 15:52 Temperature 37.0 C 10/07/24 15:52 Pulse Rate 78 10/07/24 15:52 Respiratory Rate 16 10/07/24 15:52 Blood Pressure 132/91 H 10/07/24 15:52 Pulse Oximetry 98 10/07/24 15:52 reviewed MDM - URI/Sore Throat MDM Narrative Medical decision making narrative: Differential diagnosis considered: Ace virus, strep pharyngitis, allergic rhinitis, upper respiratory tract infection, sinusitis, rhinosinusitis, nasopharyngitis. viral pharyngitis, otitis media, otitis externa, pneumonia, bronchitis, viral cough syndrome, viral syndrome, and influenza.? Exam findings show no acute concerns or changes; patient is non-toxic appearing and is in no distress.? Patient is appropriate for outpatient treatment and follow-up. Differential Diagnosis Differential diagnosis: Likely upper respiratory infection, sinusitis, viral infection, pharyngitis and other (strep pharyngitis, cough and hoarseness) Medical Records Attestation: I reviewed the patient's medical records. Lab Data Attestation: I reviewed the patient's lab results. Lab results narrative: strep screen negative culture sent Labs: Lab Results 10/07/24 Range/Units 16:09 POC Grp A Strep Screen Negative (Negative) Critical Care Time Critical Care Time Critical Care Time: No Discharge Plan Discharge Clinical Impression: Acute pharyngitis, Cough in adult Patient Disposition: Home, Self-Care Condition: Stable Instructions: Antibiotic Form, Pharyngitis (ED) Additional Instructions: Increase fluids especially juices and water [id number] cough and cold medicine of your choice for your symptoms Delsym cough syrup Steroids as directed--take with food heat to the face 20-30 minutes 4-6 times a day for pain Salt water gargles, throat lozenges or throat sprays as desired Antibiotic as directed--finished the medication If your symptoms persist, change or worsen significantly before you can contact your personal physician then please, without delay, go to the emergency department for further evaluation. Follow-up with PCP in 7-10 days or sooner if needed Follow up with PCP soon in regards to your blood pressure which is elevated above threshold for referral. Blood pressure above 120/80 may indicate pre-hypertension. 132/91 Prescriptions: New amoxicillin 875 mg tablet 875 mg PO Q12H Qty: 20 0RF prednisone 20 mg tablet 20 mg PO BID Qty: 10 0RF No Action atorvastatin 20 mg tablet 20 mg PO HS Qty: 90 0RF Rx Instructions: NEEDS APPOINTMENT FOR FURTHER REFILLS mesalamine [Lialda] 1.2 gram tablet,delayed release (DR/EC) 2.4 g PO BID Qty: 360 2RF Rx Instructions: 90 day prescription Follow-up/Referrals: Alexander Weiss MD [Primary Care Provider] - Time of Disposition: 16:14 Quality Aileen Coma Scale Eyes: Open Verbal: Oriented and Alert Motor: Follows Commands Aileen Coma Total Score: 15
[2024-10-07 16:11] LABS: EDSTREPNEGPOS1 Negative (Negative)
== END 2024-10-07 16:20 | disposition home or self-care (01) ==
PROVIDERS: Emergency Provider Registered Nurse; PCP Emergency Medicine
DX: J02.9 Acute pharyngitis, unspecified (principal); R05.9 Cough, unspecified; Z87.891 Personal history of nicotine dependence; E78.5 Hyperlipidemia, unspecified; Z85.46 Personal history of malignant neoplasm of prostate; Z90.79 Acquired absence of other genital organ(s)
CPT/HCPCS: 87081; 87880; 99213; G0463

== ENCOUNTER 2024-10-26 09:59 | Outpatient (CLI) | payer OTHER, SELFPAY ==
--- NOTE | 2024-10-31 15:13 | P.SLEEP_ITS ---
Sleep Study - Home Unattended Date of Study: 10/26/24 Ordering Provider: Carrol Gurrola NP Interpreting Provider: Amie Doe MD Home Sleep Study Type: Watch PAT Height: 1.8 m Weight: 106.594 kg Body Mass Index: 32.8 Neck Circumference (inches): 19 [place]: 11 Reason for Sleep Study Hypersomnolence Sleep History Billy Mendosa is a 59 [id number] with a history of loud snoring and witnessed apneas. He does not have more difficulties when he is sleeping on his back. He does not have morning headache. He does not complain of a dry mouth in the morning or a sore throat. He does have nocturnal heartburn. He does not wake at night to go to the bathroom. He may have difficulty falling asleep and staying asleep. When he awakens at night he has difficulty returning to sleep. He is not anxious about his sleep. He is usually tired, fatigued and sleepy during the day. He does not have drowsy driving. He does not have an urge to fall asleep during the day. He has a restless feeling in his legs and an urge to move his legs. This urge is not worse with rest. The urge does improve with activities. This is worse in the evening or night time. This does not concern or stress EM. He does wake up before his expected wake time. His usual bedtime is 11:00 p.m. falling asleep within 30 minutes, sleeping state 6-1/2 hours out of 7 hours spent in bed. On his days off, bedtime is later, 1:30 a.m., falling asleep within 15 minutes. He sleeps also 6-1/2 hours. He does not take planned naps. He exercises 3-4 nights out of the week, running walking and other exercises. He does not work rotating shifts. PMH: Hyperlipidemia, history of prostate cancer with radical prostatectomy, dysphagia. Habits: Tobaco: never smoker Caffeine: 1-2 cups daily Alcohol: 3 or more drinks, 3-4 nights a week Recreatonal substances: none PMFSH Past Medical History Medical History SONIA (obstructive sleep apnea) Dyslipidemia History of prostate cancer Surgical History Surgical History H/O endoscopy Knee joint replacement by other means Hx of left inguinal hernia repair Open reducible indirect left inguinal hernia repair with UHS mesh 01/13/23. Hx of knee surgery Hx of prostatectomy 2018 Family History Family History Father Family history of lung cancer, Onset Age: 57 Mother Family history of malignant neoplasm of breast in first degree relative, Onset Age: 47 Family history of lung cancer, Onset Age: 47 Sibling Family history of blood dyscrasia Family history of atrial fibrillation Other Family history of malignant neoplasm of breast No family history of hypertension Social History Social History Social History: Caffeine-36 oz diet soda Smoking status: Never smoker Tobacco type: smokeless tobacco Smoking end date: 11/17/04 Additional smoking assessment comments: quit 15 years ago Alcohol intake: current Drinks per week: 10 Alcohol use details: socially Substance use: never Substance use type: does not use Lack of Transportation: No Lack of Food: Never True Current Housing: I Have Housing Concerned About Future Housing: No Difficulty Paying Gas/Electric Bills: No Difficulty Paying for Meds: No Currently Unemployed: No Education: Master's Degree or Higher Difficulty w/ Childcare or Family Care: No Living arrangements: with family Spiritual care concerns: No Medications Home Medications ?Medication ?Instructions ?Recorded ?Confirmed ?Type atorvastatin 20 mg tablet 20 mg PO HS #90 tabs 05/05/24 10/07/24 Rx mesalamine 1.2 gram tablet,delayed 2.4 g (2 x 1.2 gram) PO BID #360 06/03/24 10/07/24 Rx release (Lialda) tabs amoxicillin 875 mg tablet 875 mg PO Q12H #20 tabs 10/07/24 Rx prednisone 20 mg tablet 20 mg PO BID #10 tabs 10/07/24 Rx ofloxacin 0.3 % eye drops See Rx Instructions EACH EYE 10/12/24 Rx .COMPLEX #5 mL Sleep Procedure The sleep study was completed using staila technologiesT a technically adequate device with seven channels: peripheral arterial tone, actigraphy, body position, snore, respiratory movement, pulse oximetry, sleep staging, and heart rate. Prior to using the device, the patient received verbal and written instructions for its application and was provided with the help desk phone number for additional telephonic instruction with 24-hour availability of qualified personnel to answer questions. Sleep Architecture The total recording time is 8 hours 23 minutes. The total sleep time is 7 hours 50 minutes. Sleep latency is 15 minutes. REM latency is 79 minutes. The patient had 6 episodes of waking. Sleep architecture shows 19% deep sleep, 50 % light sleep, and 31% stage REM. The patient spent 274 minutes, 53% of total sleep time in the supine position. Respiratory Analysis Using 3% criteria from the AASM, the overall AHI is 32.6. The central AHI is 0.9. The REM AHI was 32.8. There was no evidence of Cody-Cool respirations. Using 4% criteria, the apnea-hypopnea index is 24, the REM apnea-hypopnea index is 18.7. Oximetry Data The oxygen desaturation index is 24.6 using 3% criteria. The mean saturation is 92%, the lowest saturation is 84%, and the patient spent 6.1 minutes, 1.3% of the sleep time, below 88%. Snoring Profile Snoring was present, average intensity 41 dB. The patient snored above 45 dB for 30.8 minutes, 6.5% of the sleep time. Cardiac Profile The average pulse is 60 beats per minute, the lowest pulse is 44 beats per minute, and the highest pulse is 102 beats per minute. Cardiac rhythm analysis and sleep did not detect atrial fibrillation. Assessment and Plan Assessment and Plan (1) SONIA (obstructive sleep apnea): Code(s): G47.33 - Obstructive sleep apnea (adult) (pediatric) Status: Acute Assessment and Plan: This home sleep test using WatchPat on 10/26/2024 shows obstructive sleep apnea syndrome, using the 3% criteria the apnea-hypopnea index is 32.6 which is severe and using the 4% criteria by CMS, the apnea-hypopnea index is 24 which is moderately elevated. Patient desaturated to 84%, spent 6.1 minutes below 88% and had moderate snoring. He is a candidate for treatment. His options include autoPAP or a CPAP titration in the sleep lab. I recommend that this patient be prescribed Resmed AirSense 11 AutoPAP 5-15 cm H2O, CPAP mask/filters/tubing and humidifier chamber. This should be used with all episodes of sleep. Compliance should be reviewed within 31-90 days of starting therapy for usage greater than 4 hours per night greater than 70% of the nights. The patient should be asked about symptoms such as excessive daytime sleepiness, quality of sleep, decreased nocturia, increased mental functioning such as memory, mood, and concentration. if he does not respond favorably to autoPAP, he should have a CPAP titration in the sleep lab. This patient may also be a candidate for an oral appliance if PAP is not tolerated. Please refer to Sleep Medicine if he wants to have a referral to Sleep Dentist. BMI is 32.8. Weight management is advised. Clinical data suggests that weight loss of 10% can reduce the severity of respiratory events and snoring and improve AHI by as much as 25%. Data The data obtained during this sleep study is adequate for interpretation. Certification This sleep study has been reviewed by a board certified sleep medicine physic
[2024-10-31 15:15] VITALS: BMI 32.8
== END 2024-10-27 11:45 | disposition home or self-care (01) ==
PROVIDERS: PCP Nurse Practitioner; Visit Provider Nurse Practitioner
DX: G47.19 Other hypersomnia (principal); G47.33 Obstructive sleep apnea (adult) (pediatric)
CPT/HCPCS: 95800

== ENCOUNTER 2024-12-28 01:09 | Day surgery (SDC) | payer OTHER, SELFPAY ==
[2024-12-15 11:33] VITALS: BMI 32.1
--- OUTSIDE RECORDS SUMMARY | 2024-12-28 01:11 | XMS_ITS | Referral Summary ---
Author Organization [facility] Address [address] [place] [address] Care Team Providers Care Facilities Mechanical Design Engineer Name Role Phone Alexander Weiss MD Primary Care Provider [phone] Encounters Date Type Department Care Team Description 12/20/2024 2:30 PM RETIREMENT ACTUARY Office Visit [facility] Orthopaedic Surgery [address] [place] [address] Medical Office Building [address] [phone] Javier Meza MD Aftercare following right knee joint replacement surgery (Primary Dx) 10/11/2024 8:20 AM RETIREMENT ACTUARY Office Visit [facility] Orthopaedic Surgery [address] [place] [address] Medical Office Building [address] [phone] Javier Meza MD Aftercare following right knee joint replacement surgery (Primary Dx) from Last 3 Months Allergies Active Allergy Reactions Criticality Noted Date Comments Venom-Honey Bee Anaphylaxis High 08/21/2022 Medications cyclobenzaprine (FLEXERIL) 10 mg tabletIndications :Muscle Spasm Take 1 tablet (10 mg total) by mouth as needed for muscle spasms 2 Active mesalamine (LIALDA) 1.2 gram EC tabletIndications :Ulcerative Colitis Take 1 tablet (1.2 g total) by mouth 2 (two) times a day 1 Active tadalafiL (CIALIS) 20 mg tabletIndications :Erectile Dysfunction Take 1 tablet (20 mg total) by mouth as needed for erectile dysfunction 1 Active atorvastatin (LIPITOR) 20 mg tabletIndications :hyperlipidemia Take 1 tablet (20 mg total) by mouth nightly 2 Active calcium polycarbophil (FIBERCON ORAL)Indications: constipation Take 1 tablet by mouth 2 (two) times a day Active apixaban (ELIQUIS) 2.5 mg tabletIndications :VTE Prophylaxis Following Ortho Surgery Take 1 tablet (2.5 mg total) by mouth 2 (two) times a day 60 tablet 4 Active famotidine (PEPCID) 10 mg tabletIndications :Heartburn Take 1 tablet (10 mg total) by mouth 2 (two) times daily for 3 (three) days per week Active pregabalin (Lyrica) 75 mg capsuleIndication s:Postoperative Acute Pain Take 1 capsule (75 mg total) by mouth every 12 (twelve) hours for 14 days 28 capsule 4 Active meloxicam (MOBIC) 15 mg tablet Take 1 tablet (15 mg total) by mouth daily 30 tablet 4 Active senna-docusate (PERICOLACE) 8.6-50 mg Take 2 tablets by mouth 2 (two) times a day May increase to 4 tablets twice daily if needed. HOLD medication for diarrhea. 80 tablet 1 4 Active oxyCODONE (ROXICODONE) 5 mg immediate release tabletIndications :Pain Take 1 tablet (5 mg total) by mouth every 4 (four) hours as needed (Breakthrough pain not controlled with tramadol and other medications) for up to 30 doses 30 tablet 4 Active traMADoL (ULTRAM) 50 mg tabletIndications :Postoperative pain Take 1 tablet (50 mg total) by mouth every 6 (six) hours as needed for pain for up to 28 doses 28 tablet [address] (PROTONIX) 40 mg EC tablet Take 1 tablet (40 mg total) by mouth daily 30 tablet 5 026 Active Active Problems Problem Noted Date Diagnosed Date Arthritis of right knee 06/15/2024 Complex tear of medial menis cus of left knee as current injury 04/07/2024 Primary osteoarthritis of right knee 11/05/2023 Elevated prostate specific antigen (PSA) 017 Hard to intubate Immunizations Name Administration Dates Next Due Influenza, Quadrivalent, Rec ombinant, Egg Free, Preservative Free, Intramuscular 08/03/2019 Influenza, Quadrivalent, Spl it, Preservative Free, Intramuscular 07/28/2018 Social History Tobacco Use Types Packs/Day Years Used Date Smoking Tobacco: Never Passive Smoke Exposure: Never Smokeless Tobacco: Former Chew Quit: 2004 Tobacco Cessation:Counseling Given: Not Answered AUDIT-C Answer Date Recorded Q1: How often do you have a drink containing alc ohol? 2-3 times a week 06/09/2024 Q2: How many drinks containi ng alcohol do you have on a typical day when you are drinking? 3 or 4 06/09/2024 Q3: How often do you have si x or more drinks on one occasion? Weekly 06/09/2024 Personal Safety Answer Date Recorded Have you ever been in or are you currently in a harmful physical or emotional relationship or is someone making you feel afraid or unsafe? Denies 06/15/2024 Sex and Gender Information Value Date Recorded Sex Assigned at Not on file Legal Sex Male 10:55 AM RETIREMENT ACTUARY Gender Identity Not on file Sexual Orientation Not on file Last Filed Vital Signs Vital Sign Reading Time Taken Comments Blood Pressure 114/77 06/15/2024 12:20 PM CDT Pulse 63 06/15/2024 12:20 PM CDT Temperature 36 C (96.8 F) 06/15/2024 12:20 PM CDT Respiratory Rate 25 06/15/2024 12:20 PM CDT Oxygen Saturation 98% 06/15/2024 12:20 PM CDT Inhaled Oxygen Concentration - - Weight 109 kg (240 lb 3.2 oz) 06/15/2024 7:17 AM CDT Height 180.3 cm (5' 11 ) 06/15/2024 7:17 AM CDT Body Mass Index 33.5 06/15/2024 7:17 AM CDT Plan of Treatment Not on file Medical Devices Implanted Type Area Manufacturing Analyst Device Identifier Shelf Expiration Date Model / Serial / Lot [employer] Smartset Medium Viscosity Cement 40gm Bone Sterile 3122-040 - [id number] Implanted:Qty: 1 on 06/15/2024 at [facility] Right: Knee [employer] 09/16/2025 3122-040 / / [id number] [employer] Bsplt Tibial 6 Knee Right Medial Left Lat Mck System [id number] - [id number] Implanted:Qty: 1 on 06/15/2024 at [facility] Right: Knee [employer] 05/04/2029 [id number] / [id number] / [id number] 1 [employer] Insert Tibial Carl X3 6 H8mm Knee Unicompartmental [place] Sterile 092741-5-Z - [id number] Implanted:Qty: 1 on 06/15/2024 at [facility] Right: Knee [employer] 04/19/2029 [id number] / / [id number] [employer] Cmpnt Fem 7 Knee Right Medial Left Lat Multicompartmental [id number] - [id number] Implanted:Qty: 1 on 06/15/2024 at [facility] Right: Knee [employer] 03/24/2029 [id number] / [id number] / [id number] 1 Insurance [facility] CHO[facility] PLUS [facility] CHO[facility] PLUS [facility] Advance Directives For more information, please contact: [phone] * Full Code (Latest Code Status on File) Date Activated Date Inactivated Comments 06/15/2024 10:09 AM 06/15/2024 5:57 PM Care Teams Facilities Mechanical Design Engineer Relationship Specialty Start Date End Date Alexander Weiss MD [employer] [facility] [address] [address] PCP - General Family Medicine 08/01/23
--- OUTSIDE RECORDS SUMMARY | 2024-12-28 01:11 | XMS_ITS | Clinical Summary ---
Author Organization [facility] Address [address] [place] [address] Care Team Providers Care Oil Well Perforator Operator Name Role Phone Alexander Weiss MD Primary Care Provider [phone] Allergies Active Allergy Reactions Criticality Noted Date [...] specific antigen (PSA) 017 Hard to intubate Encounters Date Type Department Care Team Description 12/20/2024 2:30 PM DIRECTOR INSTRUCTIONAL MATERIAL Office Visit [facility] Orthopaedic Surgery [address] [place] [address] Office Building [address] [phone] Javier Meza MD Aftercare following right knee joint replacement surgery (Primary Dx) 10/11/2024 8:20 AM DIRECTOR INSTRUCTIONAL MATERIAL Office Visit [facility] Orthopaedic Surgery [address] [place] [address] Office Building [address] [phone] Javier Meza MD Aftercare following right knee joint replacement surgery (Primary Dx) from Last 3 Months Immunizations Name Administration Dates Next Due Influenza, Quadrivalent, Rec ombinant, Egg Free, Preservative Free, Intramuscular 08/03/2019 Influenza, Quadrivalent, Spl it, Preservative Free, Intramuscular 07/28/2018 Surgical History Surgery Date Site/Laterality Comments KNEE ARTHROSCOPY 11/17/1986 - 11/16/1987 Right PROSTATECTOMY 11/17/2018 - 11/16/2019 COLONOSCOPY last one 2019 PROSTATE BIOPSY 11/17/2018 - 11/16/2019 KNEE ARTHROSCOPY 05/05/2024 Left Medical History Medical History Date Comments Hyperlipidemia Hyperlipidemia Family History Medical History Relation Name Comments Cancer Other Family history of Cancer; Anesthesia problems Neg Hx Relation Name Status Comments Other Social History Tobacco Use Types Packs/Day Years [...] on file Legal Sex Male 10:55 AM DIRECTOR INSTRUCTIONAL MATERIAL Gender Identity Not on file Sexual Orientation Not on file Obstetrics History Last Filed Vital Signs Vital Sign Reading [...] 06/15/2024 7:17 AM CDT Plan of Treatment Health Maintenance Due Date Last Done Comments Colon Cancer Screening-Colonoscopy 1967 Depression Screening 1967 Hepatitis C Screening 1967 Prostate Cancer Screening-PSA 1967 DTaP/Tdap/Td Vaccine (1 - Tdap) 1978 Hepatitis B Screening 1985 Regular Well Visit/Exam 18-64 1985 Zoster Vaccine (1 of 2) 2017 Covid-19 Vaccine (2 - 2023-2 5 season) 2024 01/27/2021 Influenza Vaccine (#1) 2024 , 07/28/2018 Pneumococcal vaccine <65 Aged Out No longer eligible based on patient's age to complete this topic Medical Devices Implanted Type Area Hospitality Coordinator Device Identifier Shelf Expiration Date Model / Serial / Lot [employer] Smartset Medium Viscosity Cement 40gm Bone Sterile 3122-040 - [id number] Implanted:Qty: 1 on 06/15/2024 at [facility] Right: Knee [employer] 09/16/2025 3122-040 / / [id number] [employer] Bsplt Tibial 6 Knee Right Medial Left Lat Mck System [id number] - [id number] Implanted:Qty: 1 on 06/15/2024 at [facility] Right: Knee [employer] 05/04/2029 [id number] / [id number] / [id number] 1 [employer] Insert Tibial Carl X3 6 H8mm Knee Unicompartmental Onlay Sterile 636365-2-K - [id number] Implanted:Qty: 1 on 06/15/2024 at [facility] Right: Knee [employer] 04/19/2029 [id number] / / [id number] [employer] Cmpnt Fem 7 Knee Right Medial Left Lat Multicompartmental [id number] - [id number] Implanted:Qty: 1 on 06/15/2024 at [facility] Right: Knee [employer] 03/24/2029 [id number] / [id number] / [id number] 1 Insurance [facility] PL[facility] Advance Directives For more information, please contact: [phone] * Full Code (Latest Code Status on File) Date Activated Date Inactivated Comments 06/15/2024 10:09 AM 06/15/2024 5:57 PM Care Teams Oil Well Perforator Operator Relationship Specialty Start Date End Date Alexander Weiss MD [address] [facility] [address] [address] PCP - General Family Medicine 08/01/23
--- NOTE | 2024-12-28 08:32 | P.PNAN_ITS ---
Anes - Initial Pre Proc Eval Procedure: Operation Date: 12/28/24 10:30 Proposed Procedures p Colonoscopy - Vivek Ramos MD Date/Time: 12/28/24 08:32 Surgeon: Vivek Ramos MD Pre Op Diagnosis: Colitis Patient Data Age: 59 Gender: M Height: 1.8 m Weight: 104.5 kg Allergies Allergy/AdvReac Type Severity Reaction Status Date / Time bee venom protein (honey bee) Allergy Unknown Swelling Verified 12/28/24 09:13 Home Medications ?Medication ?Instructions ?Recorded ?Confirmed ?Type atorvastatin 20 mg tablet 20 mg PO HS #90 tabs 05/05/24 12/15/24 Rx mesalamine 1.2 gram tablet,delayed 2.4 g (2 x 1.2 gram) PO BID #360 06/03/24 12/15/24 Rx release (Lialda) tabs prednisone 20 mg tablet 20 mg PO BID #10 tabs 10/07/24 12/15/24 Rx Resmed AirSense 11 AutoPAP 5-15 cm #1 ea 11/03/24 12/15/24 Rx H2O, CPAP mask/filters/tubing and humidifier chamber. calcium polycarbophil 625 mg 1,250 mg PO DAILY 12/15/24 12/15/24 History tablet (FiberCon) Patient hx anesthesia problems: none Family hx anesthesia problems: none Results Review: All pre-operative results and documents have been reviewed as part of the pre- operative evaluation. [facility] Past Medical History Medical History History of smoking Over weight Dysphagia GERD (gastroesophageal reflux disease) Prediabetes SONIA (obstructive sleep apnea) Dyslipidemia History of prostate cancer Surgical History Surgical History H/O endoscopy Knee joint replacement by other means Hx of left inguinal hernia repair Open reducible indirect left inguinal hernia repair with UHS mesh 01/13/23. Hx of knee surgery Hx of prostatectomy 2018 Family History Family History Father Family history of lung cancer, Onset Age: 57 Mother Family history of malignant neoplasm of breast in first degree relative, Onset Age: 47 Family history of lung cancer, Onset Age: 47 Sibling Family history of blood dyscrasia Family history of atrial fibrillation Other Family history of malignant neoplasm of breast No family history of hypertension Social History Social History Social History: Caffeine-36 oz diet soda Smoking status: Never smoker Tobacco type: smokeless tobacco Smoking end date: 11/17/04 Additional smoking assessment comments: quit 15 years ago Alcohol intake: current Drinks per week: 10 Alcohol use details: socially Substance use: never Substance use type: does not use Lack of Transportation: No Lack of Food: Never True Current Housing: I Have Housing Concerned About Future Housing: No Difficulty Paying Gas/Electric Bills: No Difficulty Paying for Meds: No Currently Unemployed: No Education: Master's Degree or Higher Difficulty w/ Childcare or Family Care: No Living arrangements: with family Spiritual care concerns: No Anes - Eval Final PreProcedure Day of Procedure 12/28/24 08:32 Patient weight: overweight Heart: regular rate and rhythm Lungs: clear to auscultation Airway: Mallampati scale class II Neurological: alert and oriented Last oral intake: >/= 8 hours ASA classification: III Emergent: yes Anesthetic plan: proceed Anesthesia type and monitoring: general GIVS and standard monitoring Results Review: All pre-operative results and documents have been reviewed as part of the pre- operative evaluation. Informed Consent: The patient's anesthetic plan and its attendant risks and benefits were discussed with the patient/family/POA. Questions were solicited and answers provided to the satisfaction of the patient/family/POA.
[2024-12-28 09:16] VITALS: BP 122/96; PULSE 75; RESP 18; TEMP 36.3; O2SAT 96
[2024-12-28] MEDS: LACTATED RINGERS 1,000 ML 150 ML IV CONT (09:24)
--- NOTE | 2024-12-28 09:49 | PM.HPGS ---
History of Present Illness History of Present Illness Consent: Risks, benefits, and alternatives have been discussed and questions answered. Patient agrees to proceed with procedure. Chief complaint: Colitis Narrative: Billy Mendosa is a 59 year old male with diagnosis of UC 2008, on lialda since without any more issues since. He has normal BM, no blood in stools and has been getting his colonoscopies every 5 years, last time 2019 without signs of colitis. Review of Systems Review of Systems: All systems reviewed & are unremarkable except as noted in HPI and below PMFSH Past Medical History Medical History (Updated 12/28/24 @ 08:36 by Javier Granados Jr., CRNA) History of smoking Over weight Dysphagia GERD (gastroesophageal reflux disease) Prediabetes SONIA (obstructive sleep apnea) Dyslipidemia History of prostate cancer Surgical History Surgical History H/O endoscopy Knee joint replacement by other means Hx of left inguinal hernia repair Open reducible indirect left inguinal hernia repair with UHS mesh 01/13/23. Hx of knee surgery Hx of prostatectomy 2017 Family History Family History Father Family history of lung cancer, Onset Age: 57 Mother Family history of malignant neoplasm of breast in first degree relative, Onset Age: 47 Family history of lung cancer, Onset Age: 47 Sibling Family history of blood dyscrasia Family history of atrial fibrillation Other Family history of malignant neoplasm of breast No family history of hypertension Social History Social History Social History: Caffeine-36 oz diet soda Smoking status: Never smoker Tobacco type: smokeless tobacco Smoking end date: 11/17/04 Additional smoking assessment comments: quit 15 years ago Alcohol intake: current Drinks per week: 10 Alcohol use details: socially Substance use: never Substance use type: does not use Lack of Transportation: No Lack of Food: Never True Current Housing: I Have Housing Concerned About Future Housing: No Difficulty Paying Gas/Electric Bills: No Difficulty Paying for Meds: No Currently Unemployed: No Education: Master's Degree or Higher Difficulty w/ Childcare or Family Care: No Living arrangements: with family Spiritual care concerns: No Meds Home Medications and Allergies Home Medications ?Medication ?Instructions ?Recorded ?Confirmed ?Type atorvastatin 20 mg tablet 20 mg PO HS #90 tabs 05/05/24 12/15/24 Rx mesalamine 1.2 gram tablet,delayed 2.4 g (2 x 1.2 gram) PO BID #360 06/03/24 12/15/24 Rx release (Lialda) tabs prednisone 20 mg tablet 20 mg PO BID #10 tabs 10/07/24 12/15/24 Rx Resmed AirSense 11 AutoPAP 5-15 cm #1 ea 11/03/24 12/15/24 Rx H2O, CPAP mask/filters/tubing and humidifier chamber. calcium polycarbophil 625 mg 1,250 mg PO DAILY 12/15/24 12/15/24 History tablet (FiberCon) Allergies Allergy/AdvReac Type Severity Reaction Status Date / Time bee venom protein (honey bee) Allergy Unknown Swelling Verified 12/28/24 09:13 Vital Signs Vital Signs - 24 hr 12/28/24 09:16 Temperature 97.3 F L Pulse Rate 75 Respiratory Rate 18 Blood Pressure 122/96 H Pulse Oximetry 96 Oxygen Delivery Room Air Exam Const: General: comfortable and no acute distress HENMT: Face/Nose/Sinus: Normal nares present Eyes: General: appearance normal, both eyes and all related structures Neck: Neck: no JVD Resp: Auscultation: clear to auscultation bilaterally Cardio: Rate: regular rate Rhythm: regular rhythm GI: Inspection: non-distended GI Palp: Yes Soft to palpation Skin: General skin exam: normal color Neuro: General: gait normal Speech: normal speech Extrem: General: normal to inspection Psych: Mental Status: mental status grossly normal Assessment and Plan Assessment and plan (1) Ulcerative colitis: Qualifiers: Ulcerative colitis location: unspecified ulcerative colitis location Digestive disease complication type: without complication Qualified Code(s): K51.90 - Ulcerative colitis, unspecified, without complications Code(s): K51.90 - Ulcerative colitis, unspecified, without complications Status: Acute Assessment and Plan: on mesalamine first diagnosed 2008 on remission colonoscopy with random colon bx
[2024-12-28 10:11] VITALS: BP 100/64; PULSE 66; RESP 11; O2SAT 95
[2024-12-28 10:21] VITALS: BP 114/82; PULSE 67; RESP 16; O2SAT 97
[2024-12-28 10:31] VITALS: BP 129/89; PULSE 62; RESP 18; O2SAT 100
== END 2024-12-28 10:49 | disposition home or self-care (01) ==
PROVIDERS: PCP Nurse Practitioner; Visit Provider Internal Medicine Gastroenterology
PROC: 0DJD8ZZ Inspection of Lower Intestinal Tract, Via Natural or Artificial Opening Endoscopic (ICD-10-PCS; CPT 45378; principal; 2024-12-28 10:30)
DX: Z12.11 Encounter for screening for malignant neoplasm of colon (principal); K64.8 Other hemorrhoids; K57.30 Diverticulosis of large intestine without perforation or abscess without bleeding; K21.9 Gastro-esophageal reflux disease without esophagitis; R73.03 Prediabetes; G47.33 Obstructive sleep apnea (adult) (pediatric); E78.5 Hyperlipidemia, unspecified; Z79.52 Long term (current) use of systemic steroids; Z99.89 Dependence on other enabling machines and devices; Z98.890 Other specified postprocedural states; Z87.891 Personal history of nicotine dependence; Z85.46 Personal history of malignant neoplasm of prostate; Z87.19 Personal history of other diseases of the digestive system; Z80.1 Family history of malignant neoplasm of trachea, bronchus and lung; Z80.3 Family history of malignant neoplasm of breast; Z82.49 Family history of ischemic heart disease and other diseases of the circulatory system
CPT/HCPCS: 45380; 88305; J2003; J2704; J7120

== ENCOUNTER 2025-03-02 17:45 | Emergency (ER) | payer OTHER, SELFPAY ==
--- NOTE | 2025-03-02 17:50 | ED.URI ---
HPI - URI/Sore Throat General Chief Complaint: Upper Respiratory Infection Stated Complaint: COUGH/CONGESTION Time Seen by Provider: 03/02/25 17:50 Source: patient Mode of arrival: ambulatory Limitations: no limitations History of Present Illness HPI Narrative: Linwood is a 60-year-old male patient presenting to the clinic today with complaints cough and nasal congestion x3 weeks. He reports sinus congestion/pressure. Is having a productive cough with some white in yellow phlegm. Denies any chest pain or shortness of breath. Related Data Home Medications ?Medication ?Instructions ?Recorded ?Confirmed ?Last Taken ?Type calcium polycarbophil 625 mg 1,250 mg PO DAILY 12/15/24 12/15/24 12/15/24 History tablet (FiberCon) Allergies Allergy/AdvReac Type Severity Reaction Status Date / Time bee venom protein (honey bee) Allergy Unknown Swelling Verified 03/02/25 18:00 Review of Systems Review of Systems: Pertinent positives per HPI. Patient denies any fever, chills, rash, visual changes, dizziness, shortness of breath, chest pain, palpitations, nausea, vomiting, diarrhea, constipation, abdominal pain, or any urinary issues. FOR[facility] Past Medical History Medical History History of smoking Over weight Dysphagia GERD (gastroesophageal reflux disease) Prediabetes SONIA (obstructive sleep apnea) Dyslipidemia History of prostate cancer Surgical History Surgical History H/O endoscopy Knee joint replacement by other means Hx of left inguinal hernia repair Open reducible indirect left inguinal hernia repair with UHS mesh 01/13/23. Hx of knee surgery Hx of prostatectomy 2018 Family History Family History Father Family history of lung cancer, Onset Age: 57 Mother Family history of malignant neoplasm of breast in first degree relative, Onset Age: 47 Family history of lung cancer, Onset Age: 47 Sibling Family history of blood dyscrasia Family history of atrial fibrillation Other Family history of malignant neoplasm of breast No family history of hypertension Social History Social History Social History: Caffeine-36 oz diet soda Smoking status: Never smoker Tobacco type: smokeless tobacco Smoking end date: 11/17/04 Additional smoking assessment comments: quit 15 years ago Alcohol intake: current Drinks per week: 10 Alcohol use details: socially Substance use: never Substance use type: does not use Lack of Transportation: No Lack of Food: Never True Current Housing: I Have Housing Concerned About Future Housing: No Difficulty Paying Gas/Electric Bills: No Difficulty Paying for Meds: No Currently Unemployed: No Education: Master's Degree or Higher Difficulty w/ Childcare or Family Care: No Living arrangements: with family Spiritual care concerns: No Comments At the time of my signature, I reviewed and agree with the nursing past medical, surgical, social, and family history. There is no relevant family history pertinent to the patient complaint. Exam Narrative: General: Well-developed, well nourished, in no apparent distress Head: Normocephalic, atraumatic Eyes: Pupils equally round and reactive to light bilaterally, EOM intact, sclera and conjunctive clear, no discharge, lids normal Ears: TMs intact and clear, ear canals clear, no drainage, grossly hearing normal. Nose: Nares patent, yellow nasal discharge, severe inflammation, maxillary sinus tenderness. Mouth: Oral pharynx without lesions or masses, good dentition, MMM. Postnasal drip Neck: Supple, trachea midline, no enlargement of anterior or posterior cervical nodes, no thyroid masses or goiter palpable. Cardio: Regular rate and rhythm, s1 and s2 normal, no murmur appreciated. Resp: Clear to auscultation bilaterally, no rhonchi, rales, wheezing or rubs Course Course Emergency Course: Portions of this record may have been created with voice recognition software. Level of Care: Express Care Visit Vital Signs Vital signs: Vital Signs Temperature 36.8 C 03/02/25 17:54 Pulse Rate 71 03/02/25 17:54 Respiratory Rate 16 03/02/25 17:54 Blood Pressure 136/87 03/02/25 17:54 Pulse Oximetry 99 03/02/25 17:54 Temperature 36.8 C 03/02/25 17:54 Pulse Rate 71 03/02/25 17:54 Respiratory Rate 16 03/02/25 17:54 Blood Pressure 136/87 03/02/25 17:54 Pulse Oximetry 99 03/02/25 17:54 Vital signs reviewed MDM - URI/Sore Throat MDM Narrative Medical decision making narrative: At the time of visit patient is resting comfortably on the exam table. Patient appears to be nontoxic. Plan: I suspect patient has acute bacterial rhinosinusitis. Prescription for prednisone and Augmentin was sent to the pharmacy. Supportive measures were discussed with the patient and they voiced understanding discharge instructions and agrees to treatment plan. Return precautions reviewed Differential Diagnosis Differential diagnosis: Likely upper respiratory infection, otitis media, sinusitis, viral infection, bronchitis, influenza, pharyngitis and other (COVID) Discharge Plan Discharge Clinical Impression: Acute bacterial rhinosinusitis Patient Disposition: Home Condition: Stable Instructions: Antibiotic Form, Rhinosinusitis (ED) Additional Instructions: Take prescription medications only as prescribed-prednisone and Augmentin Increase fluids and stay well hydrated Tylenol/motrin for pain/fever Flonase and OTC antihistamines as directed Vicks vapor rub to open sinuses Sinus rinses for congestion Cepacol spray, cough drops, throat lozenges, warm tea with honey/lemon, gargle salt water to soothe throat BRAT diet for diarrhea Clear liquids x 24 hours then advance as tolerated for nausea/vomiting Go to the ED if you develop a worsening in your condition- high fever not controlled by Tylenol or Motrin, dehydration, weakness, lethargy, shortness of breath, or chest pain. Follow up with your PCP in 3-5 days if symptoms persist. Patient Language: Estonian Prescriptions: New prednisone 20 mg tablet 40 mg PO DAILY 5 Days Qty: 10 0RF amoxicillin-pot clavulanate 875-125 mg tablet 1 tablet PO Q12H 10 Days Qty: 20 0RF No Action prednisone 20 mg tablet 20 mg PO BID Qty: 10 0RF calcium polycarbophil [FiberCon] 625 mg tablet 1,250 mg PO DAILY mesalamine [Lialda] 1.2 gram tablet,delayed release (DR/EC) 2.4 g PO BID Qty: 360 2RF Rx Instructions: 90 day prescription (DME) Resmed AirSense 11 AutoPAP 5-15 cm H2O, CPAP mask/filters/tubing and humidifier chamber. See Rx Instructions .Route .MEDSUPPLY Qty: 1 0RF Rx Instructions: As directed atorvastatin [Lipitor] 20 mg tablet 20 mg PO QHS Qty: 90 1RF Follow-up/Referrals: Carrol Gurrola COMMERCIAL ACCOUNT MANAGER [Primary Care Provider] - Time of Disposition: 17:59 Quality NIHSS Nursing Documentation ED NIHSS nursing documentation: reviewed/agree
[2025-03-02 17:54] VITALS: BP 136/87; PULSE 71; RESP 16; TEMP 36.8; O2SAT 99
== END 2025-03-02 18:05 | disposition home or self-care (01) ==
PROVIDERS: Emergency Provider Nurse Practitioner Family; PCP Nurse Practitioner
DX: J01.90 Acute sinusitis, unspecified (principal); K21.9 Gastro-esophageal reflux disease without esophagitis; R73.03 Prediabetes; E78.5 Hyperlipidemia, unspecified; Z85.46 Personal history of malignant neoplasm of prostate; Z90.79 Acquired absence of other genital organ(s); Z87.891 Personal history of nicotine dependence
CPT/HCPCS: 99213; G0463

== ENCOUNTER 2025-03-31 12:41 | Outpatient (CLI) | payer OTHER, SELFPAY ==
--- NOTE | ~2025-03-31 | XR_ITS ---
XR hip LT min 2V 03/31/2025 13:04 Indication: Left hip pain Procedure: 2 views left hip Comparison: No prior studies for comparison. Findings: Mild osteoarthritis of the left hip. There are are surgical changes consistent with pelvic dissection. No acute fracture or traumatic malalignment. Impression: 1: Mild osteoarthritis of the left hip. Reviewed, dictated and finalized at location A. Impression: 1: Mild osteoarthritis of the left hip.
--- NOTE | ~2025-03-31 | US_ITS ---
Testicular ultrasound with doppler. Indication: Scrotal pain. Technique: Real-time sonography the scrotum was performed. Color flow Doppler and Doppler spectral an alysis were performed. Findings: The testes are homogeneous in echotexture bilaterally. There is no evidence of an intrates ticular mass. The right testis measures 4.1 x 2.7 x 3.4 cm and the left 4.7 x 2.4 x 2.7 cm. There is color-flow seen to both testes. Arterial and venous spectral waveforms are seen in both testes. There is no sonographic evidence of torsion. The head of the epididymis is visualized bilaterally and is within normal limits. Probable left varicocele. Impression: Left varicocele. No other significant findings. Reviewed, dictated and finalized at [facility]. Impression: Left varicocele. No other significant findings.
--- NOTE | ~2025-03-31 | US_ITS ---
Ultrasound of the left groin CLINICAL HISTORY: Left lower quadrant pain TECHNIQUE: Sonographic imaging of the left groin region was performed. FINDINGS: No mass lesion or fluid collection evident. No hernia evident. IMPRESSION: No significant abnormality seen in the area scanned. Reviewed, dictated and finalized at [facility].
--- NOTE | ~2025-03-31 | XR_ITS ---
Lumbosacral Spine: AP, oblique, and lateral views Clinical History: Pain Findings: The normal lordotic curve is maintained. The vertebral bodies and posterior elements are i ntact. There is advanced degenerative spurring at L5-S1. There is advanced facet arthropathy, especia lly from L3 through S1. The sacroiliac joints are normally outlined. Impression: Moderate degenerative spondylosis overall, as detailed above. Reviewed, dictated and finalized at location M. Impression: Moderate degenerative spondylosis overall, as detailed above.
== END 2025-03-31 12:42 | disposition home or self-care (01) ==
PROVIDERS: PCP Nurse Practitioner; Visit Provider Nurse Practitioner
DX: I86.1 Scrotal varices (principal); M47.817 Spondylosis without myelopathy or radiculopathy, lumbosacral region; M16.12 Unilateral primary osteoarthritis, left hip
CPT/HCPCS: 72110; 73502; 76870; 76882; 93976

== ENCOUNTER 2025-04-02 14:45 | Emergency (ER) | payer OTHER, SELFPAY ==
[2025-04-02 15:04] VITALS: BP 139/92; PULSE 84; RESP 16; TEMP 36.5; O2SAT 97
--- NOTE | 2025-04-02 15:13 | ED.BACK ---
HPI - Back Pain/Injury General Chief Complaint: Back Pain/Injury Stated Complaint: BACK PAIN Time Seen by Provider: 04/02/25 15:13 Source: patient Mode of arrival: ambulatory Limitations: no limitations History of Present Illness HPI Narrative: 60-year-old male presented for complaint of right lower back pain. Onset last night. He states he was playing a game when he simply moved wrong, and developed the pain. Has had this pain in the past in the same location and will occasionally flare. Denies pain radiating into the hips or legs, numbness, tingling, weakness of the lower extremities, or change in gait, saddle paresthesia or loss of bowel or bladder. Took ibuprofen and motrin this morning. Related Data Home Medications Medication Instructions Recorded Confirmed Last Taken Type calcium polycarbophil 625 mg 1,250 mg PO DAILY 12/15/24 04/02/25 12/15/24 History tablet (FiberCon) acyclovir 800 mg tablet mg 04/02/25 Unknown History pantoprazole 40 mg tablet,delayed mg PO 04/02/25 Unknown History release Allergies Allergy/AdvReac Type Severity Reaction Status Date / Time bee venom protein (honey bee) Allergy Unknown Swelling Verified 04/02/25 14:47 Review of Systems Review of Systems: CONSTITUTIONAL: Denies body aches, fever, chills EYES: Denies visual changes CARDIOVASCULAR: Denies chest pain, palpitations, or edema. RESPIRATORY: Denies cough or dyspnea. GASTROINTESTINAL: Denies abdominal pain, nausea, vomiting, or diarrhea. SKIN: Denies rash, itching, or wounds. MUSCULOSKELETAL: reports back pain NEUROLOGIC: Denies headache, numbness, tingling, or weakness. All systems reviewed & are unremarkable except as noted in HPI and below PMFSH Past Medical History Medical History Prostate cancer History of smoking Over weight Dysphagia GERD (gastroesophageal reflux disease) Prediabetes SONIA (obstructive sleep apnea) Dyslipidemia History of prostate cancer Surgical History Surgical History H/O endoscopy Knee joint replacement by other means Hx of left inguinal hernia repair Open reducible indirect left inguinal hernia repair with UHS mesh 01/13/23. Hx of knee surgery Hx of prostatectomy 2018 Family History Family History Father Family history of lung cancer, Onset Age: 57 Mother Family history of malignant neoplasm of breast in first degree relative, Onset Age: 47 Family history of lung cancer, Onset Age: 47 Sibling Family history of blood dyscrasia Family history of atrial fibrillation Other Family history of malignant neoplasm of breast No family history of hypertension Social History Social History Social History: Caffeine-36 oz diet soda Smoking status: Never smoker Tobacco type: smokeless tobacco Smoking end date: 11/17/04 Additional smoking assessment comments: quit 15 years ago Alcohol intake: current Drinks per week: 10 Alcohol use details: socially Substance use: never Substance use type: does not use Lack of Transportation: No Lack of Food: Never True Current Housing: I Have Housing Concerned About Future Housing: No Difficulty Paying Gas/Electric Bills: No Difficulty Paying for Meds: No Currently Unemployed: No Education: Master's Degree or Higher Difficulty w/ Childcare or Family Care: No Living arrangements: with family Spiritual care concerns: No Comments At time of signature, I have reviewed and agree with nursing past medical, surgical, social and family history unless otherwise noted. Please see nursing chart for further information. There is no relevant family history pertinent to the presenting complaint Exam Narrative: GENERAL: Well-appearing, appears in pain and in no acute distress. CHEST: Speaks in full sentences. No respiratory distress. HEART: Regular rate and rhythm. Normal and equal peripheral pulses. MUSC: No Vertebral point tenderness. Mild right paraspinal tenderness with palpation. BLEs with normal strength and sensation, normal range of motion; endorses pain with movement. No ecchymosis, No open wounds, or obvious deformity; alignment normal, pulse palpable and equal bilaterally, skin warm, dry, pink. Capillary refill less than 3 seconds. Gait steady. SKIN: Warm, dry, no rash. NEURO: Alert and oriented x3. Course Course Emergency Course: Patient is aware of diagnosis, understands and agrees to treatment plan. Anticipatory guidance given. Patient agrees to follow-up as directed and is aware of reasons to seek care at the emergency department. Portions of this record may have been created with voice recognition software Level of Care: Express Care Visit Vital Signs Vital signs: Vital Signs Temperature 97.7 F 04/02/25 15:04 Pulse Rate 84 04/02/25 15:04 Respiratory Rate 16 04/02/25 15:04 Blood Pressure 139/92 H 04/02/25 15:04 Pulse Oximetry 97 04/02/25 15:04 Temperature 97.7 F 04/02/25 15:04 Pulse Rate 84 04/02/25 15:04 Respiratory Rate 16 04/02/25 15:04 Blood Pressure 139/92 H 04/02/25 15:04 Pulse Oximetry 97 04/02/25 15:04 Reviewed MDM - Back Pain/Injury MDM Narrative Medical decision making narrative: Discussed physical exam findings, pt had L-spine xray with pcp Advised supportive measures and s/s to go to the ER. Pt is stable and appropriate for outpt treatment and follow up with pcp. Differential Diagnosis Differential diagnosis: Likely lumbar radiculopathy, sciatica, strain of lumbar region, renal colic, pyelonephritis and discitis Discharge Plan Discharge Clinical Impression: Back pain Qualifiers: Back pain location: low back pain Chronicity: acute Back pain laterality: right Sciatica presence: without sciatica Qualified Code(s): M54.50 - Low back pain, unspecified Patient Disposition: Home Condition: Stable Instructions: Antibiotic Form, Back Pain (ED) Additional Instructions: Please follow up with your Primary Care Doctor within 48-72 hours - call for an appointment. Avoid lifting. pushing. pulling, or anything that worsens the pain. Walking and other gentle exercising several times a week has been shown to improve back pain; bed rest is not recommended. Take steorid as prescribed, along with Tylenol 1000mg every 8 hours Take muscle relaxers every 8 hours as needed for muscle spasm- do not drive or make any important decisions while on this medication for it can make you drowsy. Over the counter pain cream like icy/hot or biofreeze, or Salon pas/lidocaine 4% patch. You may apply heat or cold to the area as needed. If you experience any worsening pain, swelling, numbness, weakness, problems with bladder or bowel function, weakness or loss of feeling in one or both of your legs, or any other serious concerns. Patient Language: Portuguese Prescriptions: New cyclobenzaprine 10 mg tablet 10 mg PO TID PRN (Reason: muscle spasm) Qty: 10 0RF methylprednisolone [Medrol (Yosvany)] 4 mg tablets,dose pack See Rx Instructions .ROUTE .COMPLEX Qty: 21 0RF Rx Instructions: orally per package directions No Action acyclovir 800 mg tablet pantoprazole 40 mg tablet,delayed release (DR/EC) PO (DME) CPAP chinstrap See Rx Instructions .Route .MEDSUPPLY Qty: 1 0RF Rx Instructions: Rx: chinstrap DME: [employer] calcium polycarbophil [FiberCon] 625 mg tablet 1,250 mg PO DAILY mesalamine [Lialda] 1.2 gram tablet,delayed release (DR/EC) 2.4 g PO BID Qty: 360 2RF Rx Instructions: 90 day prescription (DME) Resmed AirSense 11 AutoPAP 5-15 cm H2O, CPAP mask/filters/tubing and humidifier chamber. See Rx Instructions .Route .MEDSUPPLY Qty: 1 0RF Rx Instructions: As directed atorvastatin [Lipitor] 20 mg tablet 20 mg PO QHS Qty: 90 1RF Follow-up/Referrals: Carrol Gurrola [employer]CIAL LITIGATION PARALEGAL [Primary Care Provider] - Time of Disposition: 15:23
== END 2025-04-02 15:34 | disposition home or self-care (01) ==
PROVIDERS: Emergency Provider Nurse Practitioner Family; PCP Nurse Practitioner
DX: M54.50 Low back pain, unspecified (principal); Z87.891 Personal history of nicotine dependence; K21.9 Gastro-esophageal reflux disease without esophagitis; R73.03 Prediabetes; E78.5 Hyperlipidemia, unspecified; Z85.46 Personal history of malignant neoplasm of prostate; Z90.79 Acquired absence of other genital organ(s)
CPT/HCPCS: 99213; G0463

== ENCOUNTER 2025-08-16 07:51 | Outpatient (CLI) | payer OTHER, SELFPAY ==
--- OUTSIDE RECORDS SUMMARY | 2025-08-16 07:58 | XMS_ITS ---
Author Organization [facility] Address [address] [place] [address] Care Team Providers Care Stripper Apprentice Name Role Phone Alexander Weiss MD Primary Care Provider [phone] Kirit Horta MD Unavailable [phone] Shen Poe MD Unavailable [phone] Active Problems Problem Noted Date Diagnosed Date Prostate cancer 02/15/2025 Cancer Staging:Clinical stage from 11/17/2017:Stage IIB(cT1c, cN0, cM0, PSA: 3.7, Grade Group: 2) - Signed by Shen Poe MD on 02/15/2025 Pathologic stage from 12/25/2017:Stage IIB(pT2, pN0, cM0, PSA: 3.7, Grade Group: 2) - Signed by Shen Poe MD on 02/15/2025 Arthritis of right knee 06/15/2024 Complex tear of medial menis cus of left knee as current injury 04/07/2024 Primary osteoarthritis of right knee 11/05/2023 Elevated prostate specific antigen (PSA) 017 Hard to intubate Current Treatment and Therapy Plans No current plan information found. Past Treatment and Therapy Plans No past plan information found. Lifetime Dose Tracking * Chemical Lifetime Dose Automatic Entry Manual Entr y DLP 2,197 mGycm 2,197 mGycm 0 mGycm
--- OUTSIDE RECORDS SUMMARY | 2025-08-16 07:58 | XMS_ITS | Clinical Summary ---
Author Organization [facility] Address [address] [place] [address] Care Team Providers Care Aperture Mask Etcher Name Role Phone Alexander Weiss MD Primary Care Provider [phone] Kirit Horta MD Unavailable Shen Poe MD Unavailable [phone] Allergies Active Allergy Reactions Criticality Noted Date [...] to 28 doses 28 tablet 4 Active amoxicillin 500 mg tablet/capsuleInd ications:Prophyla ctic antibiotic TAKE 4 PILL 1 HOUR BEFORE DENTAL APPOINTMENT. 4 tablet/capsu le [address] (PROTONIX) 40 mg EC tablet TAKE 1 TABLET BY MOUTH EVERY DAY 30 tablet 5 Active Active Problems Problem Noted Date Diagnosed [...] Encounters Date Type Department Care Team Description 07/12/2025 11:30 AM CDT Office Visit [facility] Radiation Oncology [address] [facility] [place] [address] Shen Poe MD Prostate cancer (HCC) (Primary Dx) 07/06/2025 10:20 AM CDT Office Visit [facility] Medicine Orthopaedic Surgery [address] [facility] [address] [place] [id number] Javier Meza MD Aftercare following right knee joint replacement surgery (Primary Dx) 07/06/2025 10:00 AM CDT - 07/06/2025 11:59 PM CDT Hospital Encounter [id number] [facility] [address] [place] [id number] Aftercare following right knee joint replacement surgery Discharge Disposition: Discharge to home or self care 07/06/2025 9:40 AM CDT Lab [facility] ([facility]) [address] [place] [address] Prostate cancer (HCC) from Last 3 Months Immunizations Immunization Administration Dates Next Due Influenza, Quadrivalent, Rec ombinant, Egg Free, Preservative Free, Intramuscular 08/03/2019 Influenza, Quadrivalent, Spl it, Preservative Free, Intramuscular 07/28/2018 Surgical History Surgery Date Site/Laterality Comments KNEE ARTHROSCOPY 11/17/1986 - 11/16/1987 Right PROSTATECTOMY 11/17/2018 - 11/16/2019 COLONOSCOPY last one 2024 PROSTATE BIOPSY 11/17/2018 - 11/16/2019 KNEE ARTHROSCOPY 05/05/2024 Left Medical History Medical History Date Comments Hyperlipidemia Hyperlipidemia Family History Medical History Relation Name Comments Cancer Other Family history of Cancer; Anesthesia problems Neg Hx Relation Name Status Comments Other Social History Tobacco Use Types Packs/Day Years Used Date Smoking Tobacco: Never Passive Smoke Exposure: Never Smokeless Tobacco: Former Chew Quit: 2005 Tobacco Cessation:Counseling Given: Not Answered AUDIT-C Answer [...] on file Legal Sex Male 10:55 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 Gender Identity Not on file Sexual Orientation Not on file Obstetrics History Last Filed Vital Signs Vital Sign Reading Time Taken Comments Blood Pressure 168/72 02/15/2025 1:42 PM CDT Pulse 69 02/15/2025 1:42 PM CDT Temperature 36 C (96.8 F) 06/15/2024 12:20 PM CDT Respiratory Rate 18 02/15/2025 1:42 PM CDT Oxygen Saturation 95% 02/15/2025 1:42 PM CDT Inhaled Oxygen Concentration - - Weight 109 kg (240 lb 6.4 oz) 07/12/2025 11:35 A M CDT Height 180.3 cm (5' 11) 07/12/2025 11:35 AM CDT Body Mass Index 33.53 07/12/2025 11:35 AM CDT Plan of Treatment Health Maintenance Due Date Last Done Comments Colon Cancer Screening-Colonoscopy 1967 Depression Screening 1967 Hepatitis C Screening 1967 Hepatitis B Screening 1985 Regular Well Visit/Exam 18-64 1985 Zoster Vaccine (1 of 2) 2017 Covid-19 Vaccine (3 - 2024- season) 2025 12/12/2021, 01/27/2021 Influenza Vaccine (#1) 2025 , 08/03/2019, 07/28/2018, Additional history exists Prostate Cancer Screening-PSA 07/06/2027 07/06/2025, 03/31/2025, 02/15/2025 DTaP/Tdap/Td Vaccine (3 - Td or Tdap) 01/16/2035 01/16/2025, 08/19/2014, 11/24/2006 Pneumococcal vaccine <65 Aged Out No longer eligible based on patient's age to complete this topic Medical Devices Implanted Type Area [employer]k [employer] Device Identifier Shelf Expiration Date Model / Serial / Lot [employer] Smartset Medium Viscosity Cement 40gm Bone Sterile 3122-040 - [id number] Implanted:Qty: 1 on 06/15/2024 at [facility] Right: Knee [employer] 09/16/2025 3122-040 / / [id number] [employer] Bsplt Tibial 6 Knee Right Medial Left Lat Mck System [id number] - [id number] Implanted:Qty: 1 on 06/15/2024 at [facility] Right: Knee [employer] 05/04/2029 [id number] / [id number] / [id number] [employer] Insert Tibial Carl X3 6 H8mm Knee Unicompartmental [place] Sterile 312357-3-F - [id number] Implanted:Qty: 1 on 06/15/2024 at [facility] Right: Knee [employer] 04/19/2029 [id number] / / [id number] [employer] Cmpnt Fem 7 Knee Right Medial Left Lat Multicompartmental [id number] - [id number] Implanted:Qty: 1 on 06/15/2024 at [facility] Right: Knee [employer] 03/24/2029 [id number] / [id number] / [id number] Procedures Procedure Name Priority Date/Time Associated Diagnosis Comments XR KNEE RIGHT 3 VIEWS Schedule Routine, Read Routine (OP Routine) 07/06/2025 10:28 AM CDT Aftercare following right knee joint replacement surgery PSA DIAGNOSTIC Routine 07/06/2025 9:12 AM CDT Prostate cancer (HCC) from Last 3 Months Results * XR Knee Right 3 Views (07/06/2025 10:28 AM CDT) Anatomical Region Laterality Modality Lower Extremities, Knee Right Computed Radiography 07/06/2025 12:1 5 PM CDT Impressions 07/06/2025 1:46 PM CDT Unicompartmental medial right knee arthroplasty in near-anatomic position. Dictated by: Vinod Dobbs MD The radiology attending physician has personally reviewed this study, and had reviewed and/or edited this written report and agrees with it. Electronically signed by: Mele Gonzales M.D. Narrative 07/06/2025 1:46 PM CDT EXAMINATION: XR KNEE RIGHT 3 VIEWS HISTORY: Right knee arthroplasty FINDINGS: 3 views the right knee are submitted for interpretation with comparison radiographs dated 07/12/2024. There is unicompartmental medial right knee arthroplasty, in unchanged, expected alignment. No periprosthetic fracture or loosening. There is mild joint chondrocalcinosis. There is a small joint effusion. There is unchanged mild patellofemoral compartment osteoarthritis. Procedure Note Mele Gonzales MD - 07/06/2025 EXAMINATION: XR KNEE RIGHT 3 VIEWS HISTORY: Right knee arthroplasty FINDINGS: 3 views the right knee are submitted for interpretation with comparison radiographs dated 07/12/2024. There is unicompartmental medial right knee arthroplasty, in unchanged, expected alignment. No periprosthetic fracture or loosening. There is mild joint chondrocalcinosis. There is a small joint effusion. There is unchanged mild patellofemoral compartment osteoarthritis. IMPRESSION: Unicompartmental medial right knee arthroplasty in near-anatomic position. Dictated by: Vinod Dobbs MD The radiology attending physician has personally reviewed this study, and had reviewed and/or edited this written report and agrees with it. Electronically signed by: Mele Gonzales M.D. Javier Meza MD IMG XR PROCEDURES Final R esult * PSA diagnostic (07/06/2025 9:12 AM CDT) PSA-Total 0.08 <=3.90 ng/mL Comment: Interpretive Data AGE SEX REFERENCE INTERVAL 0 minutes-150 years Female None 0 minutes-49 years Male None 50-59 years Male 0-3.90 60-69 years Male 0-5.40 70-79 years Male 0-6.20 80-150 years Male 0-6.20 The Nuno PSA Total assay procedure was used. Results from different manufacturers or methods may not be comparable. Serial testing should be performed using the same method. Current interpretive data last revised 22. Blood 07/06/2025 9:12 AM CDT 07/06/2025 9:32 AM CDT Shen Poe MD LAB BLOOD ORDERABLES F inal Result Performing Organization Address City/State/[facility] Co de Phone Number [facility] [address] [place] [address] from Last 3 Months Insurance [facility] CHOICE PLUS [facility] Advance Directives For more information, please contact: [phone] * Full Code (Latest Code Status on File) Date Activated Date Inactivated Comments 06/15/2024 10:09 AM 06/15/2024 5:57 PM Care Teams Aperture Mask Etcher Relationship Specialty Start Date End Date Alexander Weiss MD [facility] [address] [address] PCP - General Family Medicine 08/01/23 Kirit Horat MD [address] [facility] [address] [place] [address] Referring Physician Urology 01/17/25 Shen Poe MD [address] [facility] [address] [place] [address] Radiation Oncologist Radiation Oncology 02/15/25
[2025-08-16 13:03] LABS: Hematocrit 42.8 % (42.0-52.0); Hemoglobin 13.9 g/dL (14.0-18.0); Immature Granulocyte Percent A 0.3 % (0-0.5); Lymphocytes Absolute Auto 1.33 K/mm3 (0.9-3.2); Mean Corpuscular HGB Conc 32.5 g/dl (32-36); Mean Corpuscular Hemoglobin 29.9 pg (26-34); Mean Corpuscular Volume 92.0 fl (80-100); Nucleated Red Blood Cells Absolute Auto 0.000 K/mm3 (0.0-0.012); Nucleated Red Blood Cells Perc 0.0 % (0.0-0.2); Platelet Count Result 191 k/mm3 (150-375); Red Blood Count 4.65 M/mm3 (4.6-6.20); White Blood Count 5.9 K/mm3 (4.5-10.0)
[2025-08-16 13:53] LABS: Alanine Aminotransferase 29 U/L (6-50); Albumin Level 4.4 g/dL (3.5-5.1); Alkaline Phosphatase 76 U/L (38-126); Anion Gap 8 mmol/L (4-12); Aspartate Amino Transferase 40 U/L (17-59); Bilirubin,Total 0.6 mg/dL (0.2-1.3); Blood Urea Nitrogen 23 mg/dL (9-20); Calcium 9.2 mg/dL (8.4-10.2); Carbon Dioxide 28 mmol/L (22-30); Chloride 104 mmol/L (98-107); Cholesterol 178 mg/dL (0-200); Estimated Glomerular Filt Rate > 60; Glucose 86 mg/dL (65-110); HDL Direct 49 mg/dL; Potassium 3.8 mmol/L (3.4-5.0); Sodium 140 mmol/L (137-145); Total Protein 7.3 g/dL (6.3-8.2); Triglycerides 137 mg/dL (<150)
[2025-08-16 14:29] LABS: Prostate Specific Antigen 0.1 ng/mL (< OR = 4.0)
[2025-08-16 16:17] LABS: Hemoglobin A1C 5.5 % (<5.7)
== END 2025-08-16 07:52 | disposition home or self-care (01) ==
LOC: ANHGOSHLAB 07:52
PROVIDERS: PCP Nurse Practitioner; Visit Provider Nurse Practitioner
DX: Z12.5 Encounter for screening for malignant neoplasm of prostate (principal); E78.5 Hyperlipidemia, unspecified; R73.03 Prediabetes
CPT/HCPCS: 36415; 80053; 80061; 83036; 84153; 85025; G0103